=== PATIENT | female | born 1935 | race Caucasian/White ===

== ENCOUNTER 2018-09-12 12:14 | Observation (INO) | payer OTHER ==
--- OUTSIDE RECORDS SUMMARY | 2018-09-12 12:18 | XMS REPORT | Clinical Summary ---
:1935 Author Organization [facility] Address [address] [place] [address] Care Team Providers Name Role Phone Rosaura Mcneill Primary Care Provider Allergies Active Allergy Reactions Severity Noted Date Comments Irbesartan 05/31/2018 Doxazosin 05/31/2018 Meperidine 05/31/2018 Hydrocodone-Acetaminophen 05/31/2018 Cephalexin 05/31/2018 Levofloxacin 05/31/2018 Oxycodone 05/31/2018 Diazepam 05/31/2018 Lisinopril 05/31/2018 Medications Medication Sig Dispensed Refills Start Date End Date Status FLUoxetine (PROzac) Take 20 mg by 0 Active 20 MG capsule mouth daily. aspirin (ECOTRIN) Take 81 mg by 0 Active 81 MG enteric mouth daily. coated tablet atenolol (TENORMIN) Take 50 mg by 0 Active 50 MG tablet mouth daily. metFORMIN Take 1,000 mg by 0 Active (GLUCOPHAGE) 1,000 mouth 2 (two) mg tablet times a day with meals. ezetimibe (ZETIA) Take 10 mg by 0 Active 10 mg tablet mouth daily. chlorthalidone Take 25 mg by 0 08/27/2013 Active (HYGROTEN) 25 MG mouth daily. tablet spironolactone Take 50 mg by 0 Active (ALDACTONE) 50 MG mouth daily. tablet vit C/vit Take 1 tablet by 0 Active E/lutein/min/omega- mouth daily. 3 (OCUVITE ORAL) simvastatin (ZOCOR) Take 20 mg by 0 Active 20 MG tablet mouth nightly. donepezil (ARICEPT) Take 5 mg by 0 Active 5 MG tablet mouth nightly. liraglutide Inject 1.8 mg 0 Active (VICTOZA 2-IRVIN) 0.6 under the skin mg/0.1 mL (18 mg/3 daily with mL) pen injector breakfast. aspirin-acetaminoph Take 1 tablet by 0 Active en-caffeine mouth every 6 (EXCEDRIN MIGRAINE) (six) hours as 250-250-65 mg per needed for tablet headaches. pramipexole Take 0.25 mg by 0 Active (MIRAPEX) 0.5 MG mouth 2 (two) tablet times a day. apixaban (ELIQUIS) Take 2.5 mg by 0 Active 2.5 mg tablet mouth 2 (two) times a day. multivitamin-minera Take 1 tablet by 0 Active ls-lutein mouth daily. (MULTIVITAMIN 50 PLUS) tablet mirabegron Take 50 mg by 0 Active (MYRBETRIQ) 50 mg mouth daily. tablet extended release 24 hr fluticasone 2 sprays by Each 0 Active (FLONASE) 50 Nare route mcg/actuation nasal daily. spray omeprazole Take 40 mg by 0 Active (PriLOSEC) 40 MG mouth daily. capsule methocarbamol Take 500 mg by 0 Active (ROBAXIN) 500 MG mouth as needed tablet for muscle spasms. cholecalciferol, Take 2,000 Units 0 Active vitamin D3, by mouth daily. (VITAMIN D3) 2,000 unit capsule capsule Lactobacillus Take 2 tablets 0 Active acidophilus by mouth daily. (PROBIOTIC ORAL) azelastine 1 spray into 0 Active (ASTELIN) 137 mcg each nostril 2 (0.1 %) nasal spray (two) times a day. Use in each nostril as directed magnesium oxide Take 400 mg by 0 Active (MAG-OX) 400 mg mouth daily. (241.3 mg magnesium) tablet HYDROcodone-acetami Take 1 tablet by 0 Active nophen (NORCO) mouth every 6 10-325 mg per (six) hours as tablet needed for moderate pain. acetaminophen/diphe Take 1 tablet by 0 Active nhydramine (TYLENOL mouth daily as PM EXTRA STRENGTH needed. ORAL) busPIRone (BUSPAR) Take 5 mg by 0 07/16/2018 Active 5 MG tablet mouth 2 (two) times a day. melatonin 5 mg Take 5 mg by 30 tablet 3 08/08/2018 Active tablet,disintegrati mouth daily. ng levalbuterol INHALE 2 PUFFS 90 g 3 09/08/2018 Active (XOPENEX HFA) 45 BY MOUTH EVERY 4 mcg/actuation HOURS NEEDED inhaler FOR WHEEZING fluticasone-vilante Inhale 1 0 Discontinued rol (BREO ELLIPTA) inhalations once 9 100-25 mcg/dose daily. blister with device powder for inhalation levalbuterol Inhale 2 puffs 0 Discontinued (XOPENEX HFA) 45 every 4 (four) 9 mcg/actuation hours as needed inhaler for wheezing. methocarbamol Take 2 capsules 0 Discontinued (ROBAXIN ORAL) by mouth as 9 needed. pregabalin (LYRICA) Take 100 mg by 0 Discontinued 100 MG capsule mouth 2 (two) 9 times a day. zolpidem (AMBIEN) Take 10 mg by 0 Discontinued 10 mg tablet mouth nightly as 9 needed for sleep. spironolactone Take 25 mg by 0 01/04/2014 Discontinued (ALDACTONE) 25 MG mouth. 2 TABLETS 9 tablet IN THE MORNING an 1 TABLET IN THE AFTERNOON beclomethasone Inhale 2 puffs 2 0 Discontinued (QVAR) 40 (two) times a 9 mcg/actuation day. inhaler rivaroxaban Take 20 mg by 0 Discontinued (XARELTO) 20 mg mouth. 9 tablet melatonin 5 mg Take 5 mg by 30 tablet 3 08/08/2018 Discontinued tablet,disintegrati mouth daily. 9 ng levalbuterol Inhale 2 puffs 15 g 3 09/08/2018 Discontinued (XOPENEX HFA) 45 every 4 (four) 9 mcg/actuation hours as needed inhaler for wheezing. Active Problems Problem Noted Date Severe persistent asthma without complication 08/08/2018 Gastroesophageal reflux disease 08/08/2018 Allergic rhinitis 08/08/2018 TARI (obstructive sleep apnea) 06/07/2018 Behaviorally induced insufficient sleep syndrome 06/07/2018 Encounters Date Type Specialty Care Team Description 09/08/2018 Refill Pulmonology Chika Gunn MD 09/08/2018 Refill Pulmonology Machelle Valdivia MA 08/08/2018 Clinical Support Pulmonology Chika Gunn, TARI (obstructive sleep apnea); Behaviorally induced insufficient sleep syndrome; Sally Bell Gastroesophageal reflux disease, esophagitis presence not specified; Allergic rhinitis, unspecified seasonality, unspecified trigger; Severe persistent asthma without complication 08/08/2018 Office Visit Pulmonology Chika Gunn, TARI (obstructive sleep apnea) (Primary Dx); Behaviorally induced insufficient sleep syndrome; Severe persistent asthma without complication; Gastroesophageal reflux disease, esophagitis presence not specified; Allergic rhinitis, unspecified seasonality, unspecified trigger 07/04/2018 Orders Only Pulmonology Chika Gunn, TARI (obstructive sleep MD apnea) (Primary Dx) 07/04/2018 Orders Only Pulmonology Machelle Valdivia MA TARI (obstructive sleep apnea); Behaviorally induced insufficient sleep syndrome 06/09/2018 Telephone Pulmonology Machelle Valdivia MA 06/07/2018 Office Visit Pulmonology Chika Gunn, TARI (obstructive sleep apnea) (Primary Dx); Behaviorally induced insufficient sleep syndrome; Severe persistent asthma without complication; Gastroesophageal reflux disease, esophagitis presence not specified; Allergic rhinitis, unspecified seasonality, unspecified trigger 05/31/2018 Documentation Pulmonology Machelle Valdivia MA precharting after 09/11/2017 Immunizations Name Dates Previously Given Next Due FLUZONE HIGH-DOSE PF 03/07/2018 Zoster 03/07/2018 Social History Tobacco Use Types Packs/Day Years Used Date Never Smoker Smokeless Tobacco: Never Used Alcohol Use Drinks/Week oz/Week Comments No Alcohol Habits Answer Date Recorded How often do you have a drink containing alcohol? Never 06/07/2018 How many drinks containing alcohol do you have on a typical Not asked day when you are drinking? How often do you have six or more drinks on one occasion? Not asked Sex Assigned at Date Recorded Not on file Job Start Date Occupation Industry Not on file Not on file Not on file Travel History Travel Start Travel End No recent travel history available. Last Filed Vital Signs Vital Sign Reading Time Taken Blood Pressure 114/76 08/08/2018 10:57 AM CDT Pulse 67 08/08/2018 10:57 AM CDT Temperature 36.5 C (97.7 F) 08/08/2018 10:57 AM CDT Respiratory Rate - - Oxygen Saturation 95% 08/08/2018 10:57 AM CDT Inhaled Oxygen Concentration - - Weight 108 kg (239 lb) 08/08/2018 10:57 AM CDT Height 170.8 cm (5' 7.25") 08/08/2018 10:57 AM CDT Body Mass Index 37.15 08/08/2018 10:57 AM CDT Plan of Treatment Date Type Specialty Care Team Description 09/19/2018 [place] [address] [facility] [address] [place] [address] [phone] Health Maintenance Due Date Last Done Comments 65+ PNEUMOCOCCAL VACCINE (1 of 2 - PCV13) 01/12/2001 PNEUMOCOCCAL POLYSACCHARIDE VACCINE AGE 65 01/12/2001 AND OVER SHINGLES VACCINES (#2) 05/07/2018 03/07/2018 INFLUENZA VACCINE 12/22/2018 03/07/2018, 03/07/2018 Procedures Procedure Name Priority Date/Time Associated Diagnosis Comments NURSING COMMUNICATION Routine 08/08/2018 2:55 Results for this PM CDT procedure are in the results section. PULMONARY FUNCTION Routine 08/08/2018 10:17 TARI (obstructive Results for this TEST AM CDT sleep apnea) procedure are in Behaviorally induced the results insufficient sleep section. syndrome Gastroesophageal reflux disease, esophagitis presence not specified Allergic rhinitis, unspecified seasonality, unspecified trigger Severe persistent asthma without complication HOME SLEEP TESTING Routine 07/04/2018 9:35 TARI (obstructive Results for this AM HEEL PACKER sleep apnea) procedure are in Behaviorally induced the results insufficient sleep section. syndrome after 09/11/2017 Results Nursing communication (08/08/2018 2:55 PM CDT) Narrative Performed At None availabe patient was set up on 07/20/2018. Pulmonary function tests, complete (08/08/2018 10:17 AM CDT) R0.5IN Pre 4.52 3.06 - 3.06 cmH2O*s/L [facility] FRCpl Pre 2.92 2.09 - 3.73 L [facility] RV Pre 2.72 1.83 - 2.98 L [facility] TLC Pre 4.73 4.50 - 6.47 L [facility] RV % TLC Pre 57.58 37.25 - 56.43 % [facility] VC Pre 2.01 2.17 - 3.69 L [facility] ERV Pre 0.19 0.50 - 0.50 L [facility] IC Pre 1.81 2.21 - 2.21 L [facility] sR0.5IN Pre 13.65 cmH2O*s [facility] Raw Pre 11.24 3.06 - 3.06 cmH2O*s/L [facility] sGaw Predicted 0.03 0.10 - 0.10 1/(cmH2O*s) [facility] FEV1 Pre 1.60 1.54 - 2.83 L [facility] FEV1/FVC % Pre 76.59 63.59 - 83.18 % [facility] MVV Pre 49.66 71.30 - 96.46 L/min [facility] FVC Pre 2.09 2.17 - 3.69 L [facility] PEF Pre 4.50 3.22 - 7.00 L/s [facility] FEF 25-75% Pre 1.37 0.13 - 2.86 L/s [facility] DLCO Pre 17.23 9.36 - 24.05 ml/(min*mmHg) [facility] DL/VA Pre 4.11 2.40 - 5.15 ml/(min*mmHg*L) [facility] VA SB Pre 4.19 5.33 - 5.33 L [facility] FEV1 Predicted 2.19 [facility] FEV1 LLN 1.54 [facility] FEV1 % Pre of Predicted 73.3 % [facility] FVC Predicted 2.93 [facility] FVC LLN 2.17 [facility] FVC % Pre of Predicted 71.4 % [facility] FEV1/FVC % Predicted 73 [facility] FEV1/FVC % LLN 64 [facility] FEV1/FVC % Pre of Predicted 104.4 % [facility] FEF 25-75% Predicted 1.50 [facility] FEF 25-75% LLN 0.13 [facility] FEF 25-75% % Pre of Predicted 91.4 % [facility] PEF Predicted 5.11 [facility] PEF LLN 3.22 [facility] PEF % Pre of Predicted 88.0 % [facility] VC Predicted 2.93 [facility] VC LLN 2.17 [facility] VC % Pre of Predicted 68.4 % [facility] ERV Predicted 0.50 [facility] ERV LLN 0.50 [facility] ERV % Pre of Predicted 38.3 % [facility] FRCpl % Predicted 2.91 [facility] FRCpl % LLN 2.09 [facility] FRCpl % Pre of Predicted 100.3 % [facility] IC Predicted 2.21 [facility] IC LLN 2.21 [facility] IC % Pre of Predicted 82.1 % [facility] RV Predicted 2.40 [facility] RV LLN 1.83 [facility] RV % Pre of Predicted 113.3 % [facility] RV % TLC Predicted 47 [facility] RV % TLC LLN 37 [facility] RV % TLC % Pre of Predicted 122.9 % [facility] TLC Predicted 5.48 [facility] TLC LLN 4.50 [facility] TLC % Pre of Predicted 86.2 % [facility] Raw Predicted 3.06 [facility] Raw LLN 3.06 [facility] Raw % Pre of Predicted 367.3 % [facility] R0.5IN Predicted 3.06 [facility] R0.5IN LLN 3.06 [facility] R0.5IN % Pre of Predicted 147.6 % [facility] sGaw Predicted 0.10 [facility] sGaw LLN 0.10 [facility] sGaw % Pre of Predicted 28.9 % [facility] DLCO Predicted 16.71 [facility] DLCO LLN 9.36 [facility] DLCO % Pre of Predicted 103.2 % [facility] DLCOc Predicted 16.71 [facility] DLCOc LLN 9.36 [facility] DL/VA Predicted 3.78 [facility] DL/VA LLN 2.40 [facility] DL/VA % Pre of Predicted 108.8 % [facility] KCOc SB Predicted 3.78 [facility] KCOc SB LLN 2.40 [facility] VA SB Predicted 5.33 [facility] VA SB LLN 5.33 [facility] VA SB % Pre of Predicted 78.6 % [facility] MIP Predicted 45.66 [facility] MIP LLN 21.36 [facility] MEP Predicted 56.02 [facility] MEP LLN 15.66 [facility] MVV Predicted 84 [facility] MVV LLN 71 [facility] MVV % Pre of Predicted 59.2 % [facility] Narrative Performed At Performing Organization Address City/State/Zipcode Phone Number [facility] [address] [place] [address] Home Sleep Testing (07/04/2018 9:35 AM HEEL P[facility]) Narrative Performed At after 09/11/2017 Insurance Payer Benefit Plan / Group Subscriber ID Type Phone Address [employer] MED[employer]ARE [employer] MED[employer]ARE PPO/PFFS/ERS [facility] xxxxxxxxx PPO Advance Directives Patient has advance care planning documents on file. For more information, please contact:Albaro Bernard[address] [place] [address]
--- OUTSIDE RECORDS SUMMARY | 2018-09-12 12:23 | XMS REPORT | Continuity of Care Document ---
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 CHEMISTRY Calcium Lvl 8.0 mg/dL 8.5 - 10.5 07/22 LOW [facility]2011 [facility] CHEMISTRY CO2 33 meq/L 24 - 32 07/22 HI [facility]2011 [facility] CHEMISTRY AGAP 13.0 meq/L 10.0 - 03 Normal [facility] 20.0 [facility] CHEMISTRY Phosphorus 3.2 mg/dL 2.5 - 4.5 07/22 Normal [facility]2011 [facility] CHEMISTRY Magnesium Lvl 2.0 mg/dL 1.8 - 2.4 07/22 Normal [facility]2011 [facility] HEMATOLOGY Eosinophils # 0.2 K/CMM 0.0 - 0.5 / Normal [facility] HEMATOLOGY Basophils # 0.0 K/CMM 0.0 - 0.2 03/ Normal [facility] HEMATOLOGY Lymphocytes # 1.9 K/CMM 1.0 - 5.5 03/ Normal [facility]2011 [facility] HEMATOLOGY Monocytes # 0.6 K/CMM 0.0 - 0.8 / Normal [address] HEMATOLOGY Eosinophils 3.2 % 0.0 - 4.0 03/ Normal [address] HEMATOLOGY Basophils 0.6 % 0.0 - 1.0 / Normal [address] HEMATOLOGY Segs-Bands # 3.9 K/CMM 1.5 - 8.1 03 Normal [facility] HEMATOLOGY Lymphocytes 28.6 % 20.0 - 03/ Normal [place] 40.0 /2011 [facility] HEMATOLOGY Monocytes 9.6 % 2.0 - 12.0 03 Normal [facility] HEMATOLOGY Segs 58.0 % 45.0 - 03/ Normal [place] 75.0 /2011 [facility] HEMATOLOGY MPV 8.3 fL 7.4 - 10.4 07/22 Normal [facility] HEMATOLOGY Platelet 237 K/CMM 133 - 450 03 Normal [facility] HEMATOLOGY Hgb 11.3 g/dL 12.0 - 03 LOW [facility] 16.0 /2011 [facility] HEMATOLOGY RBC 3.65 M/CMM 4.20 - 07/22 [facility] 5.40 /2011 [facility] HEMATOLOGY WBC 6.7 K/CMM 3.7 - 10.4 07/22 Normal [facility] HEMATOLOGY RDW 14.9 % 11.5 - 07/22 HI [facility] 14.5 /2011 [facility] HEMATOLOGY MCHC 33.9 g/dL 32.0 - 03 Normal [facility] 36.0 /2011 Medical [place] HEMATOLOGY MCH 31.0 pg 27.0 - 03 Normal [facility] 31.0 /2011 [facility] HEMATOLOGY MCV 91.3 fL 81.0 - 07/22 Normal [facility] 99.0 /2011 [facility] HEMATOLOGY Hct 33.3 % 36.0 - 07/22 LOW [facility] 48.0 Medical Center BEDSIDE Comment1 Notify 07/22 NA [facility] GLUCOSE RN/ /2011 [facility] BEDSIDE Gluc POC 139 mg/dL 65 - 110 07/22 HI 4Interpretive [facility] GLUCOSE [facility] Data: Medical TESTING Center Upper Reportable Limit: 200 mg/dL. CHEMISTRY Magnesium Lvl 1.6 mg/dL 1.8 - 2.4 LOW [facility] CHEMISTRY BUN 10 mg/dL 7 - Normal [facility] CHEMISTRY Creatinine 0.5 mg/dL 0.5 - 1.4 Normal [facility] Lvl [facility] CHEMISTRY Potassium Lvl 3.9 meq/L 3.5 - 5.1 Normal [facility] CHEMISTRY Sodium Lvl 136 meq/L 135 - 145 Normal [facility] CHEMISTRY Chloride Lvl 92 meq/L 95 - 109 LOW [facility] Center CHEMISTRY CO2 32 meq/L 24 - 32 Normal [facility] CHEMISTRY Calcium Lvl 8.3 mg/dL 8.5 - 10.5 LOW [facility] CHEMISTRY Glucose Lvl 120 mg/dL NA 6Interpretive Data: [facility] Reference Center Ranges : 0 - 7 days : 41 - 90 mg/dL7 days - 150 yrs : 70 - 99 mg/dL (fasting), based on the clinical recommendatio ns of the [place] [employer]. CHEMISTRY AGAP 15.9 meq/L 10.0 - Normal [facility] 20.0 [facility] CHEMISTRY Phosphorus 2.6 mg/dL 2.5 - 4.5 Normal [facility] HEMATOLOGY MPV 8.6 fL 7.4 - 10.4 Normal [facility] HEMATOLOGY MCV 90.9 fL 81.0 - Normal [facility] 99.0 [facility] HEMATOLOGY RDW 14.5 % 11.5 - Normal [facility] 14.5 [facility] HEMATOLOGY MCHC 34.0 g/dL 32.0 - Normal [facility] 36.0 [facility] HEMATOLOGY MCH 30.9 pg 27.0 - Normal [facility] 31.0 [facility] HEMATOLOGY RBC 3.85 M/CMM 4.20 - [facility] 5.40 [facility] HEMATOLOGY Platelet 216 K/CMM 133 - 450 Normal [facility] HEMATOLOGY WBC 7.6 K/CMM 3.7 - 10.4 Normal [facility] HEMATOLOGY Hgb 11.9 g/dL 12.0 - LOW [facility] 16.0 [facility] HEMATOLOGY Hct 35.0 % 36.0 - [facility] 48.0 [facility] HEMATOLOGY Lymphocytes # 2.3 K/CMM 1.0 - 5.5 Normal [facility] HEMATOLOGY Monocytes # 0.8 K/CMM 0.0 - 0.8 Normal [facility] HEMATOLOGY Segs-Bands # 4.3 K/CMM 1.5 - 8.1 Normal [facility] HEMATOLOGY Eosinophils # 0.2 K/CMM 0.0 - 0.5 Normal [facility] HEMATOLOGY Basophils # 0.0 K/CMM 0.0 - 0.2 Normal [facility] HEMATOLOGY Monocytes 10.6 % 2.0 - 12.0 Normal [facility] HEMATOLOGY Segs 56.1 % 45.0 - Normal [facility] 75.0 /2011 [facility] HEMATOLOGY Lymphocytes 30.2 % 20.0 - Normal [facility] 40.0 [facility] HEMATOLOGY Eosinophils 2.5 % 0.0 - 4.0 Normal [facility] HEMATOLOGY Basophils 0.6 % 0.0 - 1.0 Normal [facility] BEDSIDE Comment1 Notify 07/21 NA [facility] GLUCOSE RN/MD Medical TESTING Center CHEMISTRY Magnesium Lvl 1.5 mg/dL 1.8 - 2.4 07/21 LOW [facility] CHEMISTRY AGAP 16.2 meq/L 10.0 - 07/21 Normal [facility] 20.0 [facility] CHEMISTRY Calcium Lvl 8.5 mg/dL 8.5 - 10.5 07/21 Normal [facility]2011 [facility] CHEMISTRY Chloride Lvl 93 meq/L 95 - 109 07/21 LOW 2011 [facility] CHEMISTRY CO2 31 meq/L 24 - 32 07/21 Normal [facility]2011 [facility] CHEMISTRY BUN 14 mg/dL 7 - 22 07/21 Normal [facility] CHEMISTRY Creatinine 0.5 mg/dL 0.5 - 1.4 07/21 Normal [facility] CHEMISTRY Sodium Lvl 136 meq/L 135 - 145 07/21 Normal [facility]2011 [facility] CHEMISTRY Glucose Lvl 136 mg/dL 07/21 NA 7Interpretive Data: Medical Reference Center Ranges : 0 - 7 days : 41 - 90 mg/dL7 days - 150 yrs : 70 - 99 mg/dL (fasting), based on the clinical recommendatio ns of the [place] [employer]. CHEMISTRY Potassium Lvl 4.2 meq/L 3.5 - 5.1 07/21 Normal [facility] HEMATOLOGY Lymphocytes # 2.1 K/CMM 1.0 - 5.5 07/21 Normal [facility] HEMATOLOGY Eosinophils # 0.2 K/CMM 0.0 - 0.5 07/21 Normal [facility] HEMATOLOGY Basophils # 0.1 K/CMM 0.0 - 0.2 07/21 Normal [facility] HEMATOLOGY Segs-Bands # 4.7 K/CMM 1.5 - 8.1 07/21 Normal [facility] HEMATOLOGY Monocytes # 0.6 K/CMM 0.0 - 0.8 07/21 Normal [facility] HEMATOLOGY Lymphocytes 27.4 % 20.0 - 07/21 Normal [place] 40.0 /2011 [facility] HEMATOLOGY Segs 61.7 % 45.0 - 07/21 Normal [facility] 75.0 [facility] HEMATOLOGY Eosinophils 2.2 % 0.0 - 4.0 07/21 Normal [facility] HEMATOLOGY Monocytes 7.8 % 2.0 - 12.0 07/21 Normal [facility] HEMATOLOGY Basophils 0.9 % 0.0 - 1.0 07/21 Normal [facility] HEMATOLOGY INR 1.04 0.85 - 07/21 Normal 9Interpretive [facility] 1.17 Data: [facility] RANGES FOR PROTIME INR: 2.0-3.0 for most medical and surgical thromboemboli c states. 2.5-3.5 for artificial heart valves and recurrent embolism.INR SHOULD BE USED ONLY FOR PATIENTS ON STABLE ANTICOAGULANT THERAPY. HEMATOLOGY PTT 28.6 s 22.9 - 07/21 Normal 12Interpretiv [facility] 35.8 /2011 e Data: [facility] Center Therapeutic Range: 57 - 92 Seconds HEMATOLOGY PT 13.6 s 12.0 - 07/21 Normal [place] 14.7 [facility] HEMATOLOGY MPV 9.3 fL 7.4 - 10.4 07/21 Normal [facility] HEMATOLOGY Platelet 196 K/CMM 133 - 450 07/21 Normal [facility] HEMATOLOGY Hgb 11.6 g/dL 12.0 - 07/21 LOW [place] 16.0 /2011 [facility] HEMATOLOGY MCV 90.6 fL 81.0 - 07/21 Normal [facility] 99.0 /2011 [facility] HEMATOLOGY Hct 34.4 % 36.0 - 07/21 LOW [facility] [place] 48.0 /2011 Medical Center HEMATOLOGY WBC 7.6 K/CMM 3.7 - 10.4 07/21 Normal [facility] Center HEMATOLOGY RBC 3.80 M/CMM 4. - 07/21 [facility] 5.40 [facility] [place] HEMATOLOGY RDW 14.7 % 11.5 - 07/21 [facility] 14.5 Medical Center HEMATOLOGY MCH 30.5 pg 27.0 - 07/21 Normal [place] 31.0 Medical Center HEMATOLOGY MCHC 33.7 g/dL 32.0 - 07/21 Normal [place] 36.0 [facility] Center CHEMISTRY Ca Norm mgdL 3.88 mg/dL 07/20 [facility] 10.10 [facility] CHEMISTRY Ca Ion mgdL 3.80 mg/dL 07/20 [facility] . [facility] CHEMISTRY Ca Ion 0.95 1. - 07/20 [facility] [place] mMol/L 1. [facility] CHEMISTRY Ca Norm 0.97 .07/20 [facility] mMol/L . [facility] CHEMISTRY Digoxin Lvl 2.0 ng/mL 0.8 - 2.0 07/20 Normal [facility] Center CHEMISTRY Phosphorus 2.6 mg/dL 2.5 - 4.5 07/20 Normal [facility] HEMATOLOGY PTT 28.9 s 22.9 - 07/20 Normal 13Interpretiv [facility] 35.8 /2011 e Data: [facility] Center Therapeutic Range: 57 - 92 Seconds HEMATOLOGY INR 1.20 0.85 - 07/20 [place] 10Interpretiv [facility] 1. e Data: [facility] RANGES FOR PROTIME INR: 2.0-3.0 for most medical and surgical thromboemboli c states. 2.5-3.5 for artificial heart valves and recurrent embolism.INR SHOULD BE USED ONLY FOR PATIENTS ON STABLE ANTICOAGULANT THERAPY. HEMATOLOGY PT 15.2 s 12.0 - 07/20 [facility] 14.7 [facility] CHEMISTRY Ca Ion mgdL 4.80 mg/dL 07/19 Normal [facility] 10.10 [facility] CHEMISTRY Ca Ion 1.20 1. - 07/19 Normal [place] mMol/L 06.22 Medical Center CHEMISTRY Ca Norm 1.26 1.16 - 07/19 Normal [facility] [place] mMol/L . [facility] CHEMISTRY Ca Norm mgdL 5.04 mg/dL 4.65 - 07/19 Normal [facility] 5. [facility] HEMATOLOGY INR 1.21 0.85 - 07/19 [place] 11Interpretiv [facility] 1.17 e Data: [facility] RANGES FOR PROTIME INR: 2.0-3.0 for most medical and surgical thromboemboli c states. 2.5-3.5 for artificial heart valves and recurrent embolism.INR SHOULD BE USED ONLY FOR PATIENTS ON STABLE ANTICOAGULANT THERAPY. HEMATOLOGY PT 15.3 s 12.0 - 07/19 [facility] [place] 14.7 [facility] HEMATOLOGY PTT 30.3 s 22.9 - 07/19 Normal 14Interpretiv [facility] 35.8 e Data: [facility] Center Therapeutic Range: 57 - 92 Seconds CHEMISTRY Ca Norm 0.94 1.16 - 07/18 LOW [facility] mMol/L . [facility] CHEMISTRY Ca Ion mgdL 3.64 mg/dL 4.65 - 07/18 LOW [facility] 5. [facility] CHEMISTRY Ca Norm mgdL 3.76 mg/dL 4.65 - 07/18 LOW [facility] 5. [facility] CHEMISTRY Ca Ion 0.91 1.16 - 07/18 LOW [facility] mMol/L . [facility] URINALYSIS UA <=1.0 0.1 - 1.0 07/18 [facility] Urobilinogen mg/dL [facility]
*NA*< Center br/>(07/18 05:32:00) <sup> </sup> URINALYSIS UA Sq Epi None Seen 07/18 NA [facility] URINALYSIS UA Spec Grav 1.020 <=1.030 07/18 Normal [facility] URINALYSIS UA Blood Negative Negative 07/18 Normal [facility] (07/18/2011 05:32:00) Center URINALYSIS UA Bili Negative Negative 07/18 NA Medical *NA* [place] (07/18/2011 05:32:00) URINALYSIS UA Turbidity Clear Clear 07/18 Normal [facility] (07/18/2011 05:32:00) Center URINALYSIS UA pH 5.0 5.0 - 8.0 07/18 Normal [facility] URINALYSIS UA Ketones 20 mg/dL Negative 07/18 ABN Medical *ABN* Center (07/18/2011 05:32:00) URINALYSIS UA Glucose Negative mg/dL Negative 07/18 NA [facility] *NA* [place] (07/18/2011 05:32:00) URINALYSIS UA Protein Negative mg/dL Negative 07/18 Normal [facility] (07/18/2011 05:32:00) Center URINALYSIS UA Leuk Est Negative Negative 07/18 Normal [facility] (07/18/2011 05:32:00) Center URINALYSIS UA WBC 5 /HPF 0 - 5 07/18 Normal [facility] URINALYSIS UA Nitrite Negative Negative 07/18 Normal [facility] (07/18/2011 05:32:00) Center URINALYSIS UA Mucus Few /LPF None Seen 07/18 [facility] *NA* [place] (07/18/2011 05:32:00) URINALYSIS UA RBC 1 /HPF 0 - 2 07/18 Normal [facility] URINALYSIS UA Color Yellow Yellow 07/18 [facility] *NA* [place] (07/18/2011 05:32:00) BACTERIAL - MRSA by PCR Negative 1 07/18 Normal 1Interpretive [facility] Data: [facility] (07/17/2011 18:00:00) INTERPRETATIO Center N: Negative..... .No MRSA DNA detected by PCR Positive..... .MRSA DNA detected by PCRASSAY LIMITATIONS:T his is a screening test for colonization by MRSA. A positive test result indicates the patient is colonized by MRSA, but does not necessarily mean that an infection is present or that treatment is necessary. Likewise, a negative test does not exclude colonization or infection. Patients should be evaluatedclin ically for symptoms and signs of infection before making therapeutic decisions. Routine decolonizatio n is discouraged and should only be considered for select patients after consultation with an infectious diseases specialist. CHEMISTRY Hgb A1C 6.7 % 07/17 NA 8Interpretive Data: HbA1C% [facility] Center eAG(mg/dL) Interpretatio n 6.0 126 Very good control 6.5 140 Very good control 7.0 154 Good Control 7.5 169 Good Control 8.0 183 Marginal Control, take action to lower 8.5 197 Marginal Control, take action to lower 9.0 212 Poor Control, take action to lower 9.5 226 Poor Control, take action to lower10.0 240 Poor Control, take action to lower CHEMISTRY TSH 2.420 0.360 - 07/17 Normal [facility] uIU/mL 3.740 [facility] CHEMISTRY ALT 29 U/L 0 - 65 07/17 Normal [facility] CHEMISTRY AST 25 U/L 0 - 37 07/17 Normal [facility]2011 [facility] CHEMISTRY Total Protein 7.2 g/dL 6.4 - 8.4 07/17 Normal [facility]2011 [facility] CHEMISTRY Bili Total 0.6 mg/dL 0.2 - 1.3 07/17 Normal [facility] CHEMISTRY Alk Phos 45 U/L 39 - 136 07/17 Normal 2011 [facility] CHEMISTRY Albumin Lvl 3.6 g/dL 3.5 - 5.0 07/17 Normal 2011 [facility] CHEMISTRY A/G Ratio 1.0 0.7 - 1.6 07/17 Normal [facility] CHEMISTRY B/C Ratio 23 6 - 25 07/17 Normal [facility] CHEMISTRY Globulin 3.6 g/dL 2.0 - 4.0 07/17 Normal [facility] CHEMISTRY Troponin-T null 0.000 - 07/17 Normal [facility] 0.100 [facility] CHEMISTRY Troponin-I 0.05 ng/mL 0.00 - 07/17 Normal [facility] 0.40 [facility] HEMATOLOGY RBC Morph Normal 07/17 Normal [facility] (07/17/2011 17:08:00) Center HEMATOLOGY Plt Morph Normal 07/17 Normal [facility] (07/17/2011 17:08:00) Center CHEMISTRY POC V Glu 127 mg/dL 65 - 110 07/17 [facility] CHEMISTRY POC V O2 Sat 71.0 % 40.0 - 07/17 [facility] 70.0 [facility] CHEMISTRY POC V BE 12 mmol/L -2-2 - 2 07/17 [facility] CHEMISTRY POC V HCO3 39 mmol/L 22 - 26 07/17 [facility] CHEMISTRY POC V PO2 36 mm[Hg] 20 - 49 07/17 Normal [facility] CHEMISTRY POC V PCO2 59 mm[Hg] 38 - 52 07/17 HI [facility] CHEMISTRY POC V pH 7.43 7.28 - 07/17 HI [facility] 7.42 [facility] CHEMISTRY POC V Temp 37.0 Bita 07/17 NA [facility] CHEMISTRY POC V Source [place] 07/17 NA [facility] CHEMISTRY POC V LA 2.0 mMol/L 0.5 - 2.2 07/17 Normal [facility] CHEMISTRY POC V Na 134 meq/L 135 - 145 07/17 LOW [facility] CHEMISTRY POC V K 3.2 meq/L 3.5 - 5.1 07/17 LOW [facility] CHEMISTRY POC V Ion Ca 1.17 1.16 - 07/17 Normal [facility] mMol/L 1.30 [facility] CHEMISTRY POC V Hct 53.0 % 36.0 - 07/17 HI [place] 48.0 [facility] Vital Signs Vital Sign Value Date Comments Source Systolic (mm Hg) 140 06/13/2015 [facility] Diastolic (mm Hg) 77 06/13/2015 [facility] Respitory Rate 18 06/13/2015 [facility] Systolic (mm Hg) 134 06/13/2015 [facility] Diastolic (mm Hg) 77 06/13/2015 [facility] Respitory Rate 17 06/13/2015 [facility] Systolic (mm Hg) 141 06/13/2015 [facility] Diastolic (mm Hg) 63 06/13/2015 [facility] Respitory Rate 16 06/13/2015 [facility] BMI Calculated 36.67 06/13/2015 [facility] Weight 115.909 06/13/2015 [facility] Height 177.8 cm 06/13/2015 [facility] Heart Rate 71 06/13/2015 [facility] Temperature Oral (F) 97.4 F 06/13/2015 [facility] Systolic (mm Hg) 118 04/10/2015 [facility] Diastolic (mm Hg) 78 04/10/2015 [facility] Respitory Rate 20 04/10/2015 [facility] Systolic (mm Hg) 120 04/10/2015 [facility] Diastolic (mm Hg) 80 04/10/2015 [facility] Respitory Rate 19 04/10/2015 [facility] Respitory Rate 18 04/10/2015 [facility] Systolic (mm Hg) 121 04/10/2015 [facility] Diastolic (mm Hg) 55 04/10/2015 [facility] BMI Calculated 37.29 04/10/2015 [facility] Weight 114.545 04/10/2015 [facility] Height 175.26 cm 04/10/2015 [facility] Temperature Oral (F) 97.6 F 04/10/2015 [facility] Height 175.26 cm 04/05/2015 [facility] BMI Calculated 37.59 04/05/2015 [facility] Weight 115.455 04/05/2015 [facility] Respitory Rate 38 07/23/2011 [facility] Respitory Rate 43 07/23/2011 [facility] Respitory Rate 21 07/23/2011 [facility] Systolic (mm Hg) 99 07/23/2011 [facility] Diastolic (mm Hg) 55 07/23/2011 [facility] Systolic (mm Hg) 120 07/23/2011 [facility] Diastolic (mm Hg) 54 07/23/2011 [facility] Diastolic (mm Hg) 61 07/23/2011 [facility] Systolic (mm Hg) 116 07/23/2011 [facility] Temperature Oral (F) 97.6 F 07/21/2011 [facility] Temperature Oral (F) 98 F 07/21/2011 [facility] Temperature Oral (F) 97.6 F 07/19/2011 [facility] Heart Rate 77 07/17/2011 [facility] Height 179.07 cm 07/17/2011 [facility] Weight 122.727 07/17/2011 [facility] Encounters Location Location Encounter Encounter Reason Attending ADM DC Status Source Details Type Number For Visit Provider Date Date [facility] Inpatient [id number] PULMONARY JEFRY 07/17 07/22 Active [facility] EMBOLISIM CRAIG-O /2011 [facility] ICD-9# [facility] 415.1 [facility] [id number] Stephen 04/10 04/11 [facility] Emergency Department /2014 [facility] OBS Day [id number] Stephen 06/13 06/14 [facility] Surgery [facility] Emergency Department /2015 [facility] Outpatient [id number] JOSEFINA 06/17 Active [facility] Outpatient [id number] JOSEFINA 07/29 Active [facility] Outpatient [id number] JOSEFINA 08/26 Active [facility] Outpatient [id number] JOSEFINA 09/30 Active [facility] Procedures Procedure Code Date Perfomer Comments Source Cataract surgery [id number] 05/24/2011 [facility] Laminectomy [id number] 05/24/2010 [facility] Lumpectomy of [id number] 07/07/2000 [facility] Hysterectomy [id number] 05/24/1975 [facility] Tonsillectomy [id number] 05/24/1958 [facility] Bladder [id number] suspension, [facility] operation<sup>1</fortune mesh placed Medical p> Center Juliocesar [id number] patient had a [facility] holes<sup>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
--- OUTSIDE RECORDS SUMMARY | 2018-09-12 12:24 | XMS REPORT ---
:1935 [facility] Address [address] [place] [address] Dr. Siddiqui [address] [place] [id number] Care Team Providers Name Role Phone Unavailable Unavailable Unavailable Problems This patient has no known problems. Allergies, Adverse Reactions, Alerts This patient has no known allergies or adverse reactions. Medications This patient has no known medications.
--- OUTSIDE RECORDS SUMMARY | 2018-09-12 12:24 | XMS REPORT | CCD ---
:1935 Author Organization [facility] Care Team Providers Name Role Phone Arnoldo Tesfaye Referring Provider Allergies, Adverse Reactions, Alerts Substance Reaction Status Avapro Active Cardura Active Catapres Active clindamycin Active Cozaar Active Demerol HCl Active hydrocodone Active Keflex Active Levaquin Canceled oxyCODONE Active tetracyclines Active Valium Active Vasotec Active Zestril Active Problem List Condition Effective Dates Status Aphasia < 03/30/2011 Resolved Diabetes mellitus Active Hypertension Active Nausea < 03/26/2011 Inactive Pain Active Pericardial window operation Active Pulmonary embolism < 03/26/2011 Inactive SDH - Subdural hematoma Active Slurred speech < 03/26/2011 Inactive SOBOE - Shortness of breath on exertion < 03/26/2011 Inactive Medications Medication Instructions Start Date End Date Status digoxin 0.5 mg, 2 mL, Route: IV, 07/19/2011 07/19/2011 Completed Drug form: INJ, ONCE, Priority: STAT, Start date: 07/19/11 10:21:00, Stop date: 07/19/11 10:21:00 NS (Bolus) IV 500 mL 500 mL, Rate: 500 ml/hr, Infuse over: 1 hr, Route: IV, Total Volume: 500, Priority: STAT, Start date: 07/19/11 10:19:00, Duration: 1 doses or times, Stop date: 07/19/11 11:18:00, Bolus Dose 07/19/20112011 Completed Bolus Dose Actos 30 mg, 1 tab, Route: PO, 07/18/2011 07/23/2011 Discontinued Drug form: TAB, Daily, Start date: 07/18/11 9:00:00, Duration: 30 day, Stop date: 08/16/11 9:00:00 Claritin 24 Hour Allergy 10 mg, 1 tab, PO, Daily, 07/23/2011 Ordered 10 mg oral tablet 30 tab, 0, 0, Substitution Allowed, TAB Claritin 24 Hour Allergy 10 mg, 1 tab, Route: PO, 07/18/2011 07/23/2011 Discontinued Drug form: TAB, Daily, Start date: 07/18/11 9:00:00, Duration: 30 day, Stop date: 08/16/11 9:00:00 Keppra 500 mg oral tablet 1,000 mg, 2 tab, Route: 07/18/2011 07/23/2011 Discontinued PO, Drug form: TAB, Q12H, Start date: 07/18/11 9:00:00, Duration: 30 day, Stop date: 08/16/11 21:00:00 docusate sodium 100 mg 100 mg, 1 cap, PO, BID, 07/23/2011 Ordered oral capsule 60 cap, 0, 0, Substitution Allowed, CAP gabapentin 300 mg oral 300 mg, 1 cap, Route: 07/18/2011 07/23/2011 Discontinued capsule PO, Drug form: CAP, TID, Start date: 07/18/11 9:00:00, Duration: 30 day, Stop date: 08/16/11 17:00:00 Prozac 20 mg, 1 cap, Route: PO, 07/18/2011 07/23/2011 Discontinued Drug form: CAP, Daily, Start date: 07/18/11 9:00:00, Duration: 30 day, Stop date: 08/16/11 9:00:00 Zetia 10 mg, 1 tab, Route: PO, 07/18/2011 07/23/2011 Discontinued Drug form: TAB, Bedtime, Start date: 07/18/11 21:00:00, Duration: 30 day, Stop date: 08/16/11 21:00:00 atenolol 25 mg oral tablet 25 mg, 1 tab, Route: PO, 07/18/2011 07/19/2011 Discontinued Drug form: TAB, Q12H, Start date: 07/18/11 9:00:00, Duration: 30 day, Stop date: 08/16/11 21:00:00 Dilaudid 0.2 mg, 0.1 mL, Route: 07/18/2011 07/18/2011 Discontinued IV, Drug form: INJ, Q2H, PRN Pain, Start date: 07/18/11 0:56:00, Duration: 30 day, Stop date: 08/17/11 0:55:00 magnesium sulfate 2 gm, 50 mL, Route: 07/22/2011 07/22/2011 Completed IVPB, Drug form: INJ, Q2H, Total dose=4 gm, Start date: 07/22/11 12:00:00, Duration: 2 doses or times, Stop date: 07/22/11 14:00:00 Cordarone 200 mg oral 200 mg, 1 tab, PO, Q12H, 07/23/2011 Ordered tablet 60 tab, 1, 1, Substitution Allowed, TAB Prozac 20 mg oral capsule 20 mg, 1 cap, PO, Daily, 07/17/2011 Ordered 60 cap, Substitution Allowed, CAP Ancef 2 gm, Route: IVP, ONCE, 07/17/2011 07/17/2011 Completed Start date: 07/17/11 13:35:00, Stop date: 07/17/11 13:35:00 potassium chloride 40 mEq, 2 tab, Route: 07/18/2011 07/18/2011 Completed PO, Drug form: ERTAB, ONCE, Priority: STAT, Start date: 07/18/11 15:13:00, Stop date: 07/18/11 15:13:00 insulin aspart 10 unit, 0.1 mL, Route: 07/17/2011 07/23/2011 Discontinued SUB-Q, Drug form: SOLN, Q4H, PRN Blood Glucose Results, Start date: 07/17/11 16:59:00, Duration: 30 day, Stop date: 08/16/11 16:58:00 insulin aspart 2 unit, 0.02 mL, Route: 07/17/2011 07/23/2011 Discontinued SUB-Q, Drug form: SOLN, Q4H, PRN Blood Glucose Results, Start date: 07/17/11 16:59:00, Duration: 30 day, Stop date: 08/16/11 16:58:00 insulin aspart 8 unit, 0.08 mL, Route: 07/17/2011 07/23/2011 Discontinued SUB-Q, Drug form: SOLN, Q4H, PRN Blood Glucose Results, Start date: 07/17/11 16:59:00, Duration: 30 day, Stop date: 08/16/11 16:58:00 insulin aspart 6 unit, 0.06 mL, Route: 07/17/2011 07/23/2011 Discontinued SUB-Q, Drug form: SOLN, Q4H, PRN Blood Glucose Results, Start date: 07/17/11 16:59:00, Duration: 30 day, Stop date: 08/16/11 16:58:00 insulin aspart 4 unit, 0.04 mL, Route: 07/17/2011 07/23/2011 Discontinued SUB-Q, Drug form: SOLN, Q4H, PRN Blood Glucose Results, Start date: 07/17/11 16:59:00, Duration: 30 day, Stop date: 08/16/11 16:58:00 phenylephrine 50 mg + 245 mL, Rate: as 07/19/2011 07/20/2011 Discontinued Sodium Chloride 0.9% IV directed, Route: IV, 245 mL Total Volume: 250, Start date: 07/19/11 14:32:00, Duration: 30 day, Stop date: 08/18/11 14:31:00 Tylenol 650 mg, 2 tab, Route: 07/19/2011 07/23/2011 Discontinued PO, Drug form: TAB, Q6H, PRN Pain, Start date: 07/19/11 11:18:00, Duration: 30 day, Stop date: 08/18/11 11:17:00 Dextrose 50% Syringe 12.5 gm, 25 mL, Route: 07/17/2011 07/23/2011 Discontinued IVP, Drug Form: INJ, PRN, PRN Blood Glucose Results, Start date: 07/17/11 16:59:00, Duration: 30 day, Stop date: 08/16/11 17:58:00 glucagon 1 mg, Route: IM, Drug 07/17/2011 07/23/2011 Discontinued form: PDR/INJ, PRN, PRN Blood Glucose Results, Start date: 07/17/11 16:59:00, Duration: 30 day, Stop date: 08/16/11 17:58:00 Dextrose 50% Syringe 25 gm, 50 mL, Route: 07/17/2011 07/23/2011 Discontinued IVP, Drug Form: INJ, PRN, PRN Blood Glucose Results, Start date: 07/17/11 16:59:00, Duration: 30 day, Stop date: 08/16/11 17:58:00 Protonix 40 mg, Route: IVP, Drug 07/18/2011 07/18/2011 Canceled form: INJ, Before Dinner, Start date: 07/18/11 16:30:00, Duration: 30 day, Stop date: 08/16/11 16:30:00 Dilaudid 2 mg, 1 tab, Route: PO, 07/18/2011 07/23/2011 Discontinued Drug form: TAB, Q4H, PRN Pain, Start date: 07/18/11 14:20:00, Duration: 30 day, Stop date: 08/17/11 14:19:00 bisacodyl 10 mg, 2 tab, Route: PO, 07/18/2011 07/20/2011 Discontinued Drug form: ECTAB, Daily, PRN Constipation, Start date: 07/18/11 14:20:00, Duration: 30 day, Stop date: 08/17/11 14:19:00 docusate sodium 100 mg 100 mg, 1 cap, Route: 07/18/2011 07/23/2011 Discontinued oral capsule PO, Drug form: CAP, BID, Start date: 07/18/11 17:00:00, Duration: 30 day, Stop date: 08/17/11 9:00:00 magnesium sulfate 2 gm, 50 mL, Route: 07/18/2011 07/18/2011 Completed IVPB, Drug form: INJ, Q2H, Start date: 07/18/11 15:00:00, Duration: 3 doses or times, Stop date: 07/18/11 19:00:00 Lovenox 40 mg, 0.4 mL, Route: 07/20/2011 07/23/2011 Discontinued SUB-Q, Drug form: INJ, Q24H, Start date: 07/20/11 14:00:00, Duration: 30 day, Stop date: 08/18/11 14:00:00 calcium chloride 2,000 mg, 20 mL, Route: 07/18/2011 07/18/2011 Completed IV, ONCE, Priority: STAT, Start date: 07/18/11 14:44:00, Stop date: 07/18/11 14:44:00 NS 0.45% IV 1,000 mL 1,000 mL, Rate: 75 07/17/2011 07/18/2011 Discontinued ml/hr, Infuse over: 13.3 hr, Route: IV, Total Volume: 1,000, Start date: 07/17/11 17:23:00, Duration: 30 day, Stop date: 08/16/11 17:22:00 magnesium sulfate 2 gm, 50 mL, Route: 07/19/2011 07/19/2011 Completed IVPB, Drug form: INJ, Q2H, Total dose=4 gm, Start date: 07/19/11 8:00:00, Duration: 2 doses or times, Stop date: 07/19/11 10:00:00 magnesium sulfate 6 gm, Route: IVPB, Drug 07/18/2011 07/18/2011 Discontinued form: INJ, ONCE, Total dose=6 gm, Priority: STAT, Start date: 07/18/11 14:44:00, Stop date: 07/18/11 14:44:00 AMIODarone 400 mg, 2 tab, Route: 07/20/2011 07/22/2011 Discontinued PO, Drug form: TAB, Q12H, Start date: 07/20/11 21:00:00, Duration: 30 day, Stop date: 08/19/11 9:00:00 Protonix 40 mg, 1 tab, Route: PO, 07/18/2011 07/23/2011 Discontinued Drug form: ECTAB, Before Dinner, Start date: 07/18/11 16:30:00, Duration: 30 day, Stop date: 08/16/11 16:30:00 phenylephrine 50 mg + 245 mL, Rate: To keep 07/19/2011 07/19/2011 Discontinued Sodium Chloride 0.9% IV SBP >=100, Route: IV, 245 mL Total Volume: 250, Start date: 07/19/11 17:00:00, Duration: 30 day, Stop date: 08/18/11 16:59:00 atenolol 25 mg oral tablet 25 mg, 1 tab, Route: PO, 07/20/2011 07/23/2011 Discontinued Drug form: TAB, Daily, Start date: 07/20/11 9:00:00, Duration: 30 day, Stop date: 08/18/11 9:00:00 Benadryl 25 mg, 1 cap, Route: PO, 07/21/2011 07/23/2011 Discontinued Drug form: CAP, QID, PRN Itching, Start date: 07/21/11 4:46:00, Duration: 30 day, Stop date: 08/20/11 4:45:00, prn for itching K-Dur 20 oral tablet, 20 mEq, 1 tab, Route: 07/18/2011 07/18/2011 Completed extended release PO, Drug form: ERTAB, ONCE, Priority: STAT, Start date: 07/18/11 15:16:00, Stop date: 07/18/11 15:16:00 calcium gluconate 3,000 mg, 30 mL, Route: IVPB, ONCE, Start date: 07/20/11 10: 57:00, Duration: 1 doses or times, Stop date: 07/20/11 10:57:00, For Ionized Ca= 0.91-0.99 mMol/L or Corrected Ca=7 - 7.9mg/dL) 07/20/2011 07/20/2011 Completed For Ionized Ca=0.91-0.99 mMol/L or Corrected Ca=7 - 7.9mg/dL) magnesium sulfate 4 gm, 50 mL, Route: IVPB, Drug form: INJ, ONCE, Start date: 07/20/11 10:56:00, Duration: 1 doses or times, Stop date: 07/20/11 10:56:00, For Mg=1.5 - 1.7 mg/dL 07/20/2011 07/20/2011 Completed For Mg=1.5 - 1.7 mg/dL digoxin 0.25 mg, 1 mL, Route: 07/19/2011 07/20/2011 Completed IV, Drug form: INJ, ONCE, Start date: 07/19/11 23:00:00, Stop date: 07/19/11 23:00:00 potassium chloride 40 mEq, 2 tab, Route: PO, Drug form: ERTAB, ONCE, Start date: 07/20/11 10:56:00, Duration: 1 doses or times, Stop date: 07/20/11 10:56: 00, For K=3.5 - 3.9 mEq/L 07/20/2011 07/20/2011 Completed For K=3.5 - 3.9 mEq/L bisacodyl 10 mg, 2 tab, Route: PO, 07/21/2011 07/23/2011 Discontinued Drug form: ECTAB, Daily, Start date: 07/21/11 9:00:00, Duration: 30 day, Stop date: 08/19/11 9:00:00 bisacodyl 10 mg, 1 supp, Route: 07/20/2011 07/20/2011 Completed IN, Drug form: SUPP, ONCE, Start date: 07/20/11 12:06:00, Stop date: 07/20/11 12:06:00 Dilaudid 0.5 mg, 0.25 mL, Route: 07/18/2011 07/23/2011 Discontinued IV, Drug form: INJ, Q4H, PRN Pain, Start date: 07/18/11 4:13:00, Duration: 30 day, Stop date: 08/17/11 4:12:00 magnesium sulfate 6 gm, 50 mL, Route: IVPB, Drug form: INJ, ONCE, Start date: 07/17/11 23:45:00, Duration: 1 doses or times, Stop date: 07/17/11 23:45:00, For Mg=1.0 - 1.4 mg/dL 07/17/2011 07/18/2011 Completed For Mg=1.0 - 1.4 mg/dL Cordarone 200 mg, 1 tab, Route: 07/22/2011 07/23/2011 Discontinued PO, Drug form: TAB, Q12H, Start date: 07/22/11 21:00:00, Duration: 30 day, Stop date: 08/21/11 9:00:00 potassium phosphate 30 mmol, 10 mL, Route: IVPB, ONCE, Start date: 07/17/11 23 :45:00, Duration: 1 doses or times, Stop date: 07/17/11 23:45:00, For PO4=1.5 - 1.9 mg/dL; Administer when level=3 - 3.4 mEq/L in place of KCl 07/17/2011 Completed For PO4=1.5 - 1.9 mg/dL; Administer when level=3 - 3.4 mEq/L in place of KCl calcium gluconate 4,000 mg, 40 mL, Route: IVPB, ONCE, Start date: 07/18/11 4: 57:00, Duration: 1 doses or times, Stop date: 07/18/11 4:57:00, For Ionized Ca < 0.91 mMol/L or Corrected Ca=6 - 6.9mg/dL 07/18/2011 07/18/2011 Completed For Ionized Ca < 0.91 mMol/L or Corrected Ca=6 - 6.9mg/dL digoxin 0.25 mg, 1 mL, Route: 07/19/2011 07/19/2011 Completed IV, Drug form: INJ, ONCE, Start date: 07/19/11 17:00:00, Stop date: 07/19/11 17:00:00 ipratropium 0.02% 0.5 mg, 2.5 mL, Route: 07/21/2011 07/23/2011 Discontinued inhalation solution NEB, Drug form: SOLN, RTID, Start date: 07/21/11 20:00:00, Duration: 30 day, Stop date: 08/20/11 14:00:00 Zocor 20 mg, 1 tab, Route: PO, 07/18/2011 07/23/2011 Discontinued Drug form: TAB, Bedtime, Start date: 07/18/11 21:00:00, Duration: 30 day, Stop date: 08/16/11 21:00:00 AMIODarone 900 mg + 482 mL, Rate: as 07/19/2011 07/20/2011 Discontinued Dextrose 5% in Water IV directed, Route: IV, 482 mL Total Volume: 500, Start date: 07/19/11 14:36:00, Duration: 30 day, Stop date: 08/18/11 14:35:00 AMIODarone 150 mg + 97 mL, Rate: 600 ml/hr, 07/19/2011 07/19/2011 Completed Dextrose 5% in Water IV 97 Infuse over: 10 minutes, mL Route: IV, Total Volume: 100, Start date: 07/19/11 14:36:00, Duration: 1 doses or times, Stop date: 07/19/11 14:45:00 Vital Signs Most recent to oldest 1 2 3 [Reference Range]: Height 179.07 cm (07/17/2011 09:27:00) Current Weight 118.409 kg 144.000 kg 96.818 kg (07/22/2011 06:23:00) (07/20/2011 10:18:00) (07/19/2011 10:45:00) Temperature Oral 97.6 DegF 98 DegF 97.6 DegF [96.4-99.1 DegF] (07/21/2011 00:00:00) (07/20/2011 20:00:00) (07/19/2011 12: 00:00) Systolic Blood Pressure 99 mmHg 120 mmHg 116 mmHg [90-140 mmHg] (07/23/2011 11:00:00) (07/23/2011 09:00:00) (07/23/2011 08:00: 00) Diastolic Blood Pressure 55 mmHg 54 mmHg 61 mmHg [60-90 mmHg] *LOW* *LOW* (07/23/2011 08:00:00) (07/23/2011 11:00:00) (07/23/2011 09:00:00) Respiratory Rate [14-20 38 BRMIN 43 BRMIN 21 BRMIN BRMIN] *HI* *HI* *HI* (07/23/2011 13:00:00) (07/23/2011 12:30:00) (07/23/2011 12:00:00) Peripheral Pulse Rate 77 bpm [60-100 bpm] (07/17/2011 09:50:00) Weight 122.727 kg (07/17/2011 09:27:00) Results BACTERIAL - SEROLOGY Most recent to [Reference Range]: 1 2 3 MRSA by PCR Negative 1 (07/17/2011 18:00:00) 1Interpretive Data: INTERPRETATION: Negative......No MRSA DNA detected by PCR Positive......MRSA DNA detected by PCRASSAY LIMITATIONS:This is a screening test for colonization by MRSA. A positivetest result indicates the patient is colonized by MRSA, but does not necessarily mean that an infection is present or that treatment is necessary. Likewise, a negative test does not exclude colonization or infection. Patients should be evaluatedclinically for symptoms and signs of infection before making therapeutic decisions. Routine decolonization is discouraged and should only be considered forselect patients after consultation with an infectious diseases specialist.BEDSIDE GLUCOSE TESTING Most recent to 1 2 3 [Reference Range]: Gluc POC Lifscn [65-110 125 mg/dL 2 132 mg/dL 3 139 mg/dL 4 mg/dL] *HI* *HI* *HI* (07/23/2011 11:38:00) (07/23/2011 04:49:00) (07/22/2011 20:16:00) Comment1 Notify RN/MD Notify RN/MD Notify RN/MD *NA* *NA* *NA* (07/23/2011 04:49:00) (07/22/2011 20:16:00) (07/21/2011 17:30:00) 2Interpretive Data: Upper Reportable Limit: 200 mg/dL.3Interpretive Data: Upper Reportable Limit: 200 mg/dL.4Interpretive Data: Upper Reportable Limit: 200 mg/dL.URINALYSIS Most recent to oldest [Reference Range]: 1 2 3 UA Turbidity [Clear] Clear (07/18/2011 05:32:00) UA Color [Yellow] Yellow *NA* (07/18/2011 05:32:00) UA pH [5.0-8.0] 5.0 (07/18/2011 05:32:00) UA Spec Grav [<=1.030] 1.020 (07/18/2011 05:32:00) UA Glucose [Negative mg/dL] Negative mg/dL *NA* (07/18/2011 05:32:00) UA Blood [Negative] Negative (07/18/2011 05:32:00) UA Ketones [Negative mg/dL] 20 mg/dL *ABN* (07/18/2011 05:32:00) UA Protein [Negative mg/dL] Negative mg/dL (07/18/2011 05:32:00) UA Urobilinogen [0.1-1.0 mg/dL] <=1.0 mg/dL *NA* (07/18/2011 05:32:00) UA Bili [Negative] Negative *NA* (07/18/2011 05:32:00) UA Leuk Est [Negative] Negative (07/18/2011 05:32:00) UA Nitrite [Negative] Negative (07/18/2011 05:32:00) UA WBC [0-5 /HPF] 5 /HPF (07/18/2011 05:32:00) UA RBC [0-2 /HPF] 1 /HPF (07/18/2011 05:32:00) UA Sq Epi None Seen *NA* (07/18/2011 05:32:00) UA Mucus [None Seen /LPF] Few /LPF *NA* (07/18/2011 05:32:00) CHEMISTRY Most recent to oldest 1 2 3 [Reference Range]: Sodium Lvl [135-145 mEq/L] 140 mEq/L 136 mEq/L 136 mEq/L (07/23/2011 03:21:00) (07/22/2011 02:57:00) (07/21/2011 05:07:00) Potassium Lvl [3.5-5.1 4.0 mEq/L 3.9 mEq/L 4.2 mEq/L mEq/L] (07/23/2011 03:21:00) (07/22/2011 02:57:00) (07/21/2011 05:07:00) Chloride Lvl [95-109 mEq/L] 98 mEq/L 92 mEq/L 93 mEq/L (07/23/2011 03:21:00) *LOW* *LOW* (07/22/2011 02:57:00) (07/21/2011 05:07:00) CO2 [24-32 mEq/L] 33 mEq/L 32 mEq/L 31 mEq/L *HI* (07/22/2011 02:57:00) (07/21/2011 05:07:00) (07/23/2011 03:21:00) AGAP [10.0-20.0 mEq/L] 13.0 mEq/L 15.9 mEq/L 16.2 mEq/L (07/23/2011 03:21:00) (07/22/2011 02:57:00) (07/21/2011 05:07:00) Creatinine Lvl [0.5-1.4 0.7 mg/dL 0.5 mg/dL 0.5 mg/dL mg/dL] (07/23/2011 03:21:00) (07/22/2011 02:57:00) (07/21/2011 05:07:00) BUN [7-22 mg/dL] 8 mg/dL 10 mg/dL 14 mg/dL (07/23/2011 03:21:00) (07/22/2011 02:57:00) (07/21/2011 05:07:00) B/C Ratio [6-25] 23 (07/17/2011 17:08:00) Glucose Lvl 123 mg/dL 5 120 mg/dL 6 136 mg/dL 7 *NA* *NA* *NA* (07/23/2011 03:21:00) (07/22/2011 02:57:00) (07/21/2011 05:07:00) Total Protein [6.4-8.4 7.2 g/dL g/dL] (07/17/2011 17:08:00) Albumin Lvl [3.5-5.0 g/dL] 3.6 g/dL (07/17/2011 17:08:00) Globulin [2.0-4.0 g/dL] 3.6 g/dL (07/17/2011 17:08:00) A/G Ratio [0.7-1.6] 1.0 (07/17/2011 17:08:00) Calcium Lvl [8.5-10.5 8.0 mg/dL 8.3 mg/dL 8.5 mg/dL mg/dL] *LOW* *LOW* (07/21/2011 05:07:00) (07/23/2011 03:21:00) (07/22/2011 02:57:00) Phosphorus [2.5-4.5 mg/dL] 3.2 mg/dL 2.6 mg/dL 2.6 mg/dL (07/23/2011 03:21:00) (07/22/2011 02:57:00) (07/20/2011 02:23:00) Magnesium Lvl [1.8-2.4 2.0 mg/dL 1.6 mg/dL 1.5 mg/dL mg/dL] (07/23/2011 03:21:00) *LOW* *LOW* (07/22/2011 02:57:00) (07/21/2011 15:00:00) ALT [0-65 U/L] 29 U/L (07/17/2011 17:08:00) AST [0-37 U/L] 25 U/L (07/17/2011 17:08:00) Alk Phos [39-136 U/L] 45 U/L (07/17/2011 17:08:00) Bili Total [0.2-1.3 mg/dL] 0.6 mg/dL (07/17/2011 17:08:00) Troponin-T [0.000-0.100 <0.010 ng/mL ng/mL] (07/17/2011 17:08:00) Troponin-I [0.00-0.40 0.05 ng/mL ng/mL] (07/17/2011 17:08:00) Hgb A1C 6.7 % 8 *NA* (07/17/2011 17:08:00) TSH [0.360-3.740 uIU/mL] 2.420 uIU/mL (07/17/2011 17:08:00) Ca Ion mgdL [4.65-5.20 3.80 mg/dL 4.80 mg/dL 3.64 mg/dL mg/dL] *LOW* (07/19/2011 02:14:00) *LOW* (07/20/2011 02:23:00) (07/18/2011 13:22:00) Ca Ion [1.16-1.30 mMol/L] 0.95 mMol/L 1.20 mMol/L 0.91 mMol/L *LOW* (07/19/2011 02:14:00) *LOW* (07/20/2011 02:23:00) (07/18/2011 13:22:00) Ca Norm [1.16-1.30 mMol/L] 0.97 mMol/L 1.26 mMol/L 0.94 mMol/L *LOW* (07/19/2011 02:14:00) *LOW* (07/20/2011 02:23:00) (07/18/2011 13:22:00) Ca Norm mgdL [4.65-5.20 3.88 mg/dL 5.04 mg/dL 3.76 mg/dL mg/dL] *LOW* (07/19/2011 02:14:00) *LOW* (07/20/2011 02:23:00) (07/18/2011 13:22:00) Digoxin Lvl [0.8-2.0 ng/mL] 2.0 ng/mL (07/20/2011 02:23:00) POC V Source [place] *NA* (07/17/2011 10:01:00) POC V Temp 37.0 DegC *NA* (07/17/2011 10:01:00) POC V pH [7.28-7.42] 7.43 *HI* (07/17/2011 10:01:00) POC V PCO2 [38-52 mmHg] 59 mmHg *HI* (07/17/2011 10:01:00) POC V PO2 [20-49 mmHg] 36 mmHg (07/17/2011 10:01:00) POC V HCO3 [22-26 mmol/L] 39 mmol/L *HI* (07/17/2011 10:01:00) POC V BE [-2-2 mmol/L] 12 mmol/L *HI* (07/17/2011 10:01:00) POC V O2 Sat [40.0-70.0 %] 71.0 % *HI* (07/17/2011 10:01:00) POC V Glu [65-110 mg/dL] 127 mg/dL *HI* (07/17/2011 10:01:00) POC V Hct [36.0-48.0 %] 53.0 % *HI* (07/17/2011 10:01:00) POC V Ion Ca [1.16-1.30 1.17 mMol/L mMol/L] (07/17/2011 10:01:00) POC V K [3.5-5.1 mEq/L] 3.2 mEq/L *LOW* (07/17/2011 10:01:00) POC V LA [0.5-2.2 mMol/L] 2.0 mMol/L (07/17/2011 10:01:00) POC V Na [135-145 mEq/L] 134 mEq/L *LOW* (07/17/2011 10:01:00) 5Interpretive Data: Reference Ranges : 0 - 7 days : 41 - 90 mg/dL7 days - 150 yrs : 70 - 99 mg/dL (fasting), based on the clinical recommendations of the [employer].6Interpretive Data: Reference Ranges : 0 - 7 days : 41 - 90 mg/dL7 days - 150 yrs : 70 - 99 mg/dL (fasting), based on the clinical recommendations of the [employer].7Interpretive Data : Reference Ranges : 0 - 7 days : 41 - 90 mg/dL7 days - 150 yrs : 70 - 99 mg/dL (fasting), based on the clinical recommendations of the [place] [employer].8Interpretive Data: HbA1C% eAG(mg/dL) Interpretation 6.0 126Very good control 6.5 140 Very good control 7.0 154 Good Control 7.5 169 Good Control 8.0 183 Marginal Control, take action to lower 8.5 197 Marginal Control, take action to lower 9.0 212 Poor Control, take action to lower 9.5 226 Poor Control, takeaction to lower10.0 240 Poor Control, take action to lowerHEMATOLOGY Most recent to oldest 1 2 3 [Reference Range]: WBC [3.7-10.4 K/CMM] 6.7 K/CMM 7.6 K/CMM 7.6 K/CMM (07/23/2011 03:21:00) (07/22/2011 02:57:00) (07/21/2011 05:07:00) RBC [4.20-5.40 M/CMM] 3.65 M/CMM 3.85 M/CMM 3.80 M/CMM *LOW* *LOW* *LOW* (07/23/2011 03:21:00) (07/22/2011 02:57:00) (07/21/2011 05:07:00) Hgb [12.0-16.0 g/dL] 11.3 g/dL 11.9 g/dL 11.6 g/dL *LOW* *LOW* *LOW* (07/23/2011 03:21:00) (07/22/2011 02:57:00) (07/21/2011 05:07:00) Hct [36.0-48.0 %] 33.3 % 35.0 % 34.4 % *LOW* *LOW* *LOW* (07/23/2011 03:21:00) (07/22/2011 02:57:00) (07/21/2011 05:07:00) MCV [81.0-99.0 fL] 91.3 fL 90.9 fL 90.6 fL (07/23/2011 03:21:00) (07/22/2011 02:57:00) (07/21/2011 05:07:00) MCH [27.0-31.0 pg] 31.0 pg 30.9 pg 30.5 pg (07/23/2011 03:21:00) (07/22/2011 02:57:00) (07/21/2011 05:07:00) MCHC [32.0-36.0 g/dL] 33.9 g/dL 34.0 g/dL 33.7 g/dL (07/23/2011 03:21:00) (07/22/2011 02:57:00) (07/21/2011 05:07:00) RDW [11.5-14.5 %] 14.9 % 14.5 % 14.7 % *HI* (07/22/2011 02:57:00) *HI* (07/23/2011 03:21:00) (07/21/2011 05:07:00) Platelet [133-450 K/CMM] 237 K/CMM 216 K/CMM 196 K/CMM (07/23/2011 03:21:00) (07/22/2011 02:57:00) (07/21/2011 05:07:00) MPV [7.4-10.4 fL] 8.3 fL 8.6 fL 9.3 fL (07/23/2011 03:21:00) (07/22/2011 02:57:00) (07/21/2011 05:07:00) Segs [45.0-75.0 %] 58.0 % 56.1 % 61.7 % (07/23/2011 03:21:00) (07/22/2011 02:57:00) (07/21/2011 05:07:00) Lymphocytes [20.0-40.0 %] 28.6 % 30.2 % 27.4 % (07/23/2011 03:21:00) (07/22/2011 02:57:00) (07/21/2011 05:07:00) Monocytes [2.0-12.0 %] 9.6 % 10.6 % 7.8 % (07/23/2011 03:21:00) (07/22/2011 02:57:00) (07/21/2011 05:07:00) Eosinophils [0.0-4.0 %] 3.2 % 2.5 % 2.2 % (07/23/2011 03:21:00) (07/22/2011 02:57:00) (07/21/2011 05:07:00) Basophils [0.0-1.0 %] 0.6 % 0.6 % 0.9 % (07/23/2011 03:21:00) (07/22/2011 02:57:00) (07/21/2011 05:07:00) Segs-Bands # [1.5-8.1 3.9 K/CMM 4.3 K/CMM 4.7 K/CMM K/CMM] (07/23/2011 03:21:00) (07/22/2011 02:57:00) (07/21/2011 05:07:00) Lymphocytes # [1.0-5.5 1.9 K/CMM 2.3 K/CMM 2.1 K/CMM K/CMM] (07/23/2011 03:21:00) (07/22/2011 02:57:00) (07/21/2011 05:07:00) Monocytes # [0.0-0.8 0.6 K/CMM 0.8 K/CMM 0.6 K/CMM K/CMM] (07/23/2011 03:21:00) (07/22/2011 02:57:00) (07/21/2011 05:07:00) Eosinophils # [0.0-0.5 0.2 K/CMM 0.2 K/CMM 0.2 K/CMM K/CMM] (07/23/2011 03:21:00) (07/22/2011 02:57:00) (07/21/2011 05:07:00) Basophils # [0.0-0.2 0.0 K/CMM 0.0 K/CMM 0.1 K/CMM K/CMM] (07/23/2011 03:21:00) (07/22/2011 02:57:00) (07/21/2011 05:07:00) RBC Morph Normal (07/17/2011 17:08:00) Plt Morph Normal (07/17/2011 17:08:00) PT [12.0-14.7 seconds] 13.6 seconds 15.2 seconds 15.3 seconds (07/21/2011 05:07:00) *HI* *HI* (07/20/2011 02:23:00) (07/19/2011 02:14:00) INR [0.85-1.17] 1.04 9 1.20 10 1.21 11 (07/21/2011 05:07:00) *HI* *HI* (07/20/2011 02:23:00) (07/19/2011 02:14:00) PTT [22.9-35.8 seconds] 28.6 seconds 12 28.9 seconds 13 30.3 seconds 14 (07/21/2011 05:07:00) (07/20/2011 02:23:00) (07/19/2011 02:14:00) 9Interpretive Data: RECOMMENDED RANGES FOR PROTIME INR: 2.0-3.0 for most medical and surgical thromboembolic states. 2.5-3.5 for artificial heart valves and recurrent embolism.INR SHOULD BE USED ONLY FOR PATIENTS ON STABLE ANTICOAGULANT THERAPY.10Interpretive Data: RECOMMENDED RANGES FOR PROTIME INR: 2.0-3.0 for most medical and surgical thromboembolic states. 2.5-3.5 for artificial heart valves and recurrent embolism.INR SHOULD BE USED ONLY FOR PATIENTS ON STABLE ANTICOAGULANT THERAPY.11Interpretive Data: RECOMMENDED RANGES FOR PROTIME INR: 2.0-3.0 for most medical and surgical thromboembolic states. 2.5-3.5 for artificial heart valves and recurrent embolism.INR SHOULD BE USED ONLY FOR PATIENTS ON STABLE ANTICOAGULANT THERAPY.12Interpretive Data: Heparin Therapeutic Range: 57 - 92 [id number] Data: Heparin Therapeutic Range: 57 - 92 [id number] Data: Heparin Therapeutic Range: 57 - 92 Seconds
--- NOTE | 2018-09-12 13:18 | RAD REPORT ---
EXAM DESCRIPTION: RAD - Chest Single View - 09/12/2018 12:50 pm CLINICAL HISTORY: Cough, fever, decreased O2 saturation COMPARISON: None. TECHNIQUE: AP portable chest image was obtained 1247 hours . FINDINGS: Lungs are slightly underinflated. Interstitial pattern is prominent throughout both lung f ields. Baseline for the patient is unknown. Focal density is present in the medial right lung base. M ass and focal pneumonia are both possible. As a baseline study, interstitial edema and infiltrate can not be distinguished from fibrosis throughout the lung munoz. No other area of mass or possible infi ltrate. Heart and vasculature are normal. No measurable pleural effusion and no pneumothorax. No acute bony abnormality seen. Aorta is mildly tortuous but otherwise without acute finding. Aortic calcifications are present. IMPRESSION: Focal infiltrate or masslike density medial right lung base. This can be further evaluat ed with two-view chest imaging or CT chest imaging. Baseline examination with diffusely prominent interstitial markings. This could be chronic fibrotic c hange, interstitial edema, interstitial infiltrate or a combination.
[2018-09-12 13:24] LABS: Absolute Lymphocytes (CBC) 1.2 K/uL (0.7-4.9); Absolute Monocytes 0.8 K/uL (0.1-1.3); Absolute Neutrophil 6.2 K/uL (1.8-8.0); Basophils % 0.6 % (0-1.3); Eosinophils % 0.2 % (0-4.4); Hematocrit 45.8 % (36.0-45.0); Lymphocytes % 14.5 % (15.3-44.8); MPV 8.2 fL (7.6-11.3); Monocytes % 9.5 % (3.3-12.3); RBC Red Blood Cell Count 5.02 M/uL (3.86-4.86)
[2018-09-12] MEDS ORDERED: ALBUTEROL 2.5 MG/3 ML NEB SOL ONE (13:30)
[2018-09-12 13:41] LABS: Protime INR 1.19
[2018-09-12] MEDS ORDERED: PIPER/TAZO/NS 3.375gm 3.375 GM/100 ML BAG ONE (13:45)
[2018-09-12] MEDS ORDERED: AZITHROMYCIN IV 500 MG in NA CHLORIDE 0.9% 250 ML IVPB ONE (14:00)
--- NOTE | 2018-09-12 14:19 | EKG ---
Test Date: 2018-09-12 Test Time: 12:51:24 Sleeper Cutter: RASHEL MEASUREMENT RESULTS: Intervals: Rate: 98 ME: 178 QRSD: 92 QT: 362 QTc: 462 [place]: P: -1 ME: 178 QRS: -32 T: 8 INTERPRETIVE STATEMENTS: Sinus rhythm with marked sinus arrhythmia Left axis deviation Abnormal ECG Compared to ECG 11/19/2003 13:49:00 Left-axis deviation now present Electronically Signed On 09-12-18 14:18:57 CDT by Wesley Artis
[2018-09-12 14:21] LABS: Albumin 3.2 g/dL (3.4-5.0); Bilirubin Direct 0.2 mg/dL (0-0.2); Bilirubin Total 0.7 mg/dL (0.2-1.0); Magnesium 1.5 mg/dL (1.8-2.4); Potassium 3.3 mmol/L (3.5-5.1); Protein, Total 7.4 g/dL (6.4-8.2); Troponin (Emerg Dept Use Only) 0.03 ng/mL (0.0-0.045)
--- NOTE | 2018-09-12 14:54 | EDPHYS ---
Physician Documentation [facility] Name: Samanta Carrillo Age: 83 yrs Sex: Female : 1935 Arrival Date: 09/12/2018 Time: 12:16 Bed 18 Private MD: ED Physician Reed Lindo HPI: 09/12 14:35 This 83 yrs old Female presents to ER via EMS with complaints of Shortness Of wa Breath. 14:36 The patient has shortness of breath at rest, c/o SOB, cough, fever x 2 days. noted low wa sat's 87% at PMD office so sent here for further eval. states several fam members with 'cold" symptoms as well. denies CP. denies AWAN. . Onset: The symptoms/episode began/occurred 2 day(s) ago. Duration: The symptoms are continuous, and are steadily getting worse. The patient's shortness of breath is aggravated by coughing, is alleviated by nothing. Associated signs and symptoms: Pertinent positives: productive cough, fever, vomiting, Pertinent negatives: chest pain, dizziness, hemoptysis, numbness in extremities, visual changes. Severity of symptoms: At their worst the symptoms were moderate in the emergency department the symptoms are worse moderately. The patient has not experienced similar symptoms in the past. The patient has been recently seen by a physician: the patient's primary care provider, today. Historical: - Allergies: 12:28 Avapro; jl7 12:28 Cardura; jl7 12:28 Catapres; jl7 12:28 Clindamycin; jl7 12:28 Cozaar; jl7 12:28 Demerol; jl7 12:28 [place]; jl7 12:28 Keflex; jl7 12:28 Oxycodone HCl; jl7 12:28 Tetracycline; jl7 12:28 Valium; jl7 12:28 Vasotec; jl7 12:28 Zestril; jl7 - Home Meds: 12:57 Aldactone 100 mg Oral tab 1 tab once daily [Active]; Aldactone 50 mg Oral tab 1 tab aj once daily [Active]; aspirin 81 mg Oral TbEC 1 tab once daily [Active]; atenolol 50 mg Oral tab 1 tab 2 times per day [Active]; BuSpar Oral 5 mg twice a day [Active]; chlorthalidone 50 mg Oral tab once daily [Active]; Eliquis 2.5 mg oral tab 1 tab 2 times per day [Active]; Flonase 50 mcg/actuation Nasal spsn 1 spray 2 times per day [Active]; hydrocodone-acetaminophen 5-325 mg Oral tab 1 tab daily [Active]; metformin 500 mg Oral tab 1 tab 2 times per day [Active]; Mirapex 0.5 mg Oral tab twice a day [Active]; Ocuvite [id number] hy-pzck-ty-mg oral cap [Active]; Prilosec 40 mg Oral cpDR 1 cap once daily [Active]; Prozac 20 mg Oral cap 1 cap once daily [Active]; Qvar 40 mcg inhalation 2 puff twice a day [Active]; Robaxin 500 mg Oral tab daily [Active]; spironolactone 25 mg Oral tab 1 tab once daily [Active]; docusate sodium 250 mg Oral cap 1 cap once daily [Active]; Vesicare 5 mg oral tab 1 tab once daily [Active]; Victoza 2-Mauricio 0.6 mg/0.1 mL (18 mg/3 mL) subcutaneous pnij 0.2 mL once daily [Active]; Xarelto 20 mg oral tab 1 tab once daily [Active]; Zetia 10 mg Oral tab 1 tab once daily [Active]; Zocor 20 mg Oral tab 1 tab once daily [Active]; - PMHx: 12:28 Diabetes - NIDDM; Atrial Fib; Hypertension; jl7 - Immunization history:: Adult Immunizations up to date. - Social history:: Smoking status: Patient/guardian denies using tobacco. - Family history:: not pertinent. - Ebola Screening: : Patient negative for fever greater than or equal to 101.5 degrees Fahrenheit, and additional compatible Ebola Virus Disease symptoms Patient denies exposure to infectious person Patient denies travel to an Ebola-affected area in the 21 days before illness onset No symptoms or risks identified at this time. - Hospitalizations: : No recent hospitalization is reported. ROS: 14:40 Eyes: Negative for injury, pain, redness, and discharge, ENT: Negative for injury, wa pain, and discharge, Neck: Negative for injury, pain, and swelling, Cardiovascular: Negative for chest pain, palpitations, and edema, Back: Negative for injury and pain, : Negative for injury, bleeding, discharge, and swelling, MS/Extremity: Negative for injury and deformity, Skin: Negative for injury, rash, and discoloration, Neuro: Negative for headache, weakness, numbness, tingling, and seizure, Psych: Negative for depression, anxiety, suicide ideation, homicidal ideation, and hallucinations. 14:40 Constitutional: Positive for chills, fever, weakness. 14:40 Respiratory: Positive for cough, with yellow sputum, shortness of breath, at rest. 14:40 Abdomen/GI: Positive for nausea, vomiting, Negative for abdominal pain, diarrhea. 14:40 All other systems are negative. Exam: 14:41 Head/Face: Normocephalic, atraumatic. Eyes: Pupils equal round and reactive to light, wa extra-ocular motions intact. Lids and lashes normal. Conjunctiva and sclera are non-icteric and not injected. Cornea within normal limits. Periorbital areas with no swelling, redness, or edema. ENT: Nares patent. No nasal discharge, no septal abnormalities noted. Tympanic membranes are normal and external auditory canals are clear. Oropharynx with no redness, swelling, or masses, exudates, or evidence of obstruction, uvula midline. Mucous membranes moist. Neck: Trachea midline, no thyromegaly or masses palpated, and no cervical lymphadenopathy. Supple, full range of motion without nuchal rigidity, or vertebral point tenderness. No Meningismus. Chest/axilla: Normal chest wall appearance and motion. Nontender with no deformity. No lesions are appreciated. Cardiovascular: Regular rate and rhythm with a normal S1 and S2. No gallops, murmurs, or rubs. Normal PMI, no JVD. No pulse deficits. Back: No spinal tenderness. No costovertebral tenderness. Full range of motion. Skin: Warm, dry with normal turgor. Normal color with no rashes, no lesions, and no evidence of cellulitis. MS/ Extremity: Pulses equal, no cyanosis. Neurovascular intact. Full, normal range of motion. Neuro: Awake and alert, GCS 15, oriented to person, place, time, and situation. Cranial nerves II-XII grossly intact. Motor strength 5/5 in all extremities. Sensory grossly intact. Cerebellar exam normal. Normal gait. Psych: Awake, alert, with orientation to person, place and time. Behavior, mood, and affect are within normal limits. 14:41 Constitutional: The patient appears in no acute distress, alert, febrile. 14:41 Respiratory: the patient does not display signs of respiratory distress, Respirations: coarse bilaterally. difficult to ascertain as breaks into cough spells with deep inspiration, Breath sounds: rhonchi, that are moderate, are located in both bases, Respiratory rate: nml 14:41 Abdomen/GI: Inspection: abdomen appears normal, Bowel sounds: normal, Palpation: abdomen is soft and non-tender, in all quadrants. Vital Signs: 12:23 BP 139 / 76; Pulse 92; Resp 20; Temp 99.1; Pulse Ox 93% on 2 lpm NC; mh5 14:49 BP 152 / 94; Pulse 96; Resp 22 S; Pulse Ox 95% on 2 lpm NC; iw 15:24 BP 138 / 82; Pulse 88; Resp 19; Pulse Ox 97% on R/A; aj MDM: 12:21 Patient medically screened. va 14:43 Differential diagnosis: Bronchitis CHF exacerbation, Myocardial Infarction pneumonia, wa pulmonary edema, reactive airway disease, Unstable Angina. Data reviewed: vital signs, nurses notes. Test interpretation: by ED physician or midlevel provider: EKG: interp by me: HR 98. LAD. non-specific diffuse ST-T changes. CXRL R LL infiltrates. 14:46 Test interpretation: by ED physician or midlevel provider: labs: flu screen negative. wa noted hyperglycemia at 178. noted hyponatremia at 130, hypochloremia at 87, hypomag at 1.5. trop and BNP nml. Response to treatment: the patient's symptoms have mildly improved after treatment. ED course: cough improved with nebs. abx given. will replace low electrolytes. see orders. 14:50 Special discussion: pt allergic to multiple abx. therefore had to cover with zosyn and wa zithromax as a combination. cultures pending. 09/12 12:32 Order name: Blood Culture Adult (2) va 09/12 12:32 Order name: BMP; Complete Time: 14:45 09/12 12:32 Order name: CBC with Diff; Complete Time: 13:55 09/12 12:32 Order name: Hepatic Function; Complete Time: 14:45 09/12 12:32 Order name: Magnesium; Complete Time: 14:45 22 12:32 Order name: NT PRO-BNP; Complete Time: 14:34 va 09/12 12:32 Order name: XRAY CXR (1 view); Complete Time: 13:23 va 09/12 12:32 Order name: PT-INR; Complete Time: 14:45 va 09/12 12:32 Order name: Troponin (emerg Dept Use Only); Complete Time: 14:45 va 09/12 12:32 Order name: Flu; Complete Time: 13:55 va 09/12 13:54 Order name: Urine Microscopic Only 09/12 12:32 Order name: EKG; Complete Time: 12:33 va 09/12 12:32 Order name: Cardiac monitoring; Complete Time: 13:28 va 09/12 12:32 Order name: EKG - Nurse/Tech; Complete Time: 13:28 va 09/12 12:32 Order name: IV Saline Lock; Complete Time: 13:28 va 09/12 12:32 Order name: Labs collected and sent; Complete Time: 13: va 09/12 12:32 Order name: O2 Per Protocol; Complete Time: 13: va 09/12 12:32 Order name: O2 Sat Monitoring; Complete Time: 13: va 09/12 13:46 Order name: Labs - recollect needed; Complete Time: 14: 09/12 13:54 Order name: Urine Dipstick-Ancillary (obtain specimen) va Administered Medications: 13:45 Drug: Albuterol 1.25 mg Route: Inhalation; 13:45 Drug: Zosyn 3.375 grams Route: IVPB; Infused Over: 60 mins; Site: left antecubital; aj 16:07 Follow up: Response: No adverse reaction; IV Status: Completed infusion; IV Intake: aj 100ml 14:24 Drug: Zithromax 500 mg Route: IVPB; Infused Over: 1 hrs; Site: left antecubital; aj 16:07 Follow up: Response: No adverse reaction; IV Status: Completed infusion; IV Intake: aj 250ml 14:48 Drug: NS 0.9% 500 ml Route: IV; Rate: bolus; Site: left antecubital; iw 16:07 Follow up: Response: No adverse reaction; IV Status: Completed infusion; IV Intake: aj 500ml 15:18 Drug: Potassium Effervescent Tablet 50 mEq Route: PO; aj 16:06 Follow up: Response: No adverse reaction aj 15:18 Drug: Zofran 4 mg Route: IVP; Site: left antecubital; aj 15:57 Follow up: Response: No adverse reaction aj 16:06 Not Given (To be administered upstairs): Magnesium Sulfate 2 grams IVPB once over 2 hrs aj Disposition: 09/12/18 14:53 Hospitalization ordered by Sunday Feng for Inpatient Admission. Preliminary diagnosis are Acute Right lower lobe pneumonia, acute dyspnea and cough, hyponatremia, hypochloremia. - Bed requested for Telemetry/MedSurg (Inpatient). - Status is Inpatient Admission. aj - Condition is Stable. - Problem is new. - Symptoms have improved. UTI on Admission? No Signatures: Dispatcher [employer] EDMS Celena Chand Amanda, RN RN aj Williams, Irene, RN RN iw Leal, Jahala, RN RN jl7 Reed Lindo MD MD wa Corrections: (The following items were deleted from the chart) 15:27 14:53 Hospitalization Ordered by Sunday Feng MD for Inpatient Admission. Preliminary bd diagnosis is Acute Right lower lobe pneumonia; acute dyspnea and cough; hyponatremia; hypochloremia. Bed requested for Telemetry/MedSurg (Inpatient). Status is Inpatient Admission. Condition is Stable. Problem is new. Symptoms have improved. UTI on Admission? No. va 16:09 15:27 09/12/2018 14:53 Hospitalization Ordered by Sunday Feng MD for Inpatient Admission. Preliminary diagnosis is Acute Right lower lobe pneumonia; acute dyspnea and cough; hyponatremia; hypochloremia. Bed requested for Telemetry/MedSurg (Inpatient). Status is Inpatient Admission. Condition is Stable. Problem is new. Symptoms have improved. UTI on Admission? No. bd
--- NOTE | 2018-09-12 14:54 | ER ---
Nurse's Notes [facility] Name: Samanta Carrillo Age: 83 yrs Sex: Female : 1935 Arrival Date: 09/12/2018 Time: 12:16 Bed 18 Private MD: Diagnosis: Acute Right lower lobe pneumonia;acute dyspnea and cough;hyponatremia;hypochloremia Presentation: 09/12 12:16 Presenting complaint: EMS states: She was at the doctor in [place], RA sat was jl7 87%, pt c/o not feeling well for the last 2 days with unproductive cough and fever. Transition of care: patient was received from another setting of care (ambulatory primary care physician practice). Onset of symptoms was September 10, 2018. Risk Assessment: Do you want to hurt yourself or someone else? Patient reports no desire to harm self or others. Initial Sepsis Screen: Does the patient meet any 2 criteria? HR > 90 bpm. No. Patient's initial sepsis screen is negative. Does the patient have a suspected source of infection? No. Patient's initial sepsis screen is negative. Care prior to arrival: Medication(s) given: Albuterol Neb x 1, Atrovent Neb x 1, IV initiated. 20 GA, in the left antecubital area. 12:16 Method Of Arrival: EMS: [facility] jl7 12:16 Acuity: FLORIN 3 jl7 Triage Assessment: 16:05 Respiratory: Onset: The symptoms/episode began/occurred. aj Historical: - Allergies: 12:28 Avapro; jl7 12:28 Cardura; jl7 12:28 Catapres; jl7 12:28 Clindamycin; jl7 12:28 Cozaar; jl7 12:28 Demerol; jl7 12:28 [place]; jl7 12:28 Keflex; jl7 12:28 Oxycodone HCl; jl7 12:28 Tetracycline; jl7 12:28 Valium; jl7 12:28 Vasotec; jl7 12:28 Zestril; jl7 - Home Meds: 12:57 Aldactone 100 mg Oral tab 1 tab once daily [Active]; Aldactone 50 mg Oral tab 1 tab aj once daily [Active]; aspirin 81 mg Oral TbEC 1 tab once daily [Active]; atenolol 50 mg Oral tab 1 tab 2 times per day [Active]; BuSpar Oral 5 mg twice a day [Active]; chlorthalidone 50 mg Oral tab once daily [Active]; Eliquis 2.5 mg oral tab 1 tab 2 times per day [Active]; Flonase 50 mcg/actuation Nasal spsn 1 spray 2 times per day [Active]; hydrocodone-acetaminophen 5-325 mg Oral tab 1 tab daily [Active]; metformin 500 mg Oral tab 1 tab 2 times per day [Active]; Mirapex 0.5 mg Oral tab twice a day [Active]; Ocuvite [id number] xd-dzsy-ma-mg oral cap [Active]; Prilosec 40 mg Oral cpDR 1 cap once daily [Active]; Prozac 20 mg Oral cap 1 cap once daily [Active]; Qvar 40 mcg inhalation 2 puff twice a day [Active]; Robaxin 500 mg Oral tab daily [Active]; spironolactone 25 mg Oral tab 1 tab once daily [Active]; docusate sodium 250 mg Oral cap 1 cap once daily [Active]; Vesicare 5 mg oral tab 1 tab once daily [Active]; Victoza 2-Mauricio 0.6 mg/0.1 mL (18 mg/3 mL) subcutaneous pnij 0.2 mL once daily [Active]; Xarelto 20 mg oral tab 1 tab once daily [Active]; Zetia 10 mg Oral tab 1 tab once daily [Active]; Zocor 20 mg Oral tab 1 tab once daily [Active]; - PMHx: 12:28 Diabetes - NIDDM; Atrial Fib; Hypertension; jl7 - Immunization history:: Adult Immunizations up to date. - Social history:: Smoking status: Patient/guardian denies using tobacco. - Family history:: not pertinent. - Ebola Screening: : Patient negative for fever greater than or equal to 101.5 degrees Fahrenheit, and additional compatible Ebola Virus Disease symptoms Patient denies exposure to infectious person Patient denies travel to an Ebola-affected area in the 21 days before illness onset No symptoms or risks identified at this time. - Hospitalizations: : No recent hospitalization is reported. Screenin:58 Abuse screen: Denies threats or abuse. Denies injuries from another. Nutritional aj screening: No deficits noted. Tuberculosis screening: No symptoms or risk factors identified. Fall Risk None identified. Assessment: 12:47 General: Appears in no apparent distress. comfortable, Behavior is calm, cooperative, aj appropriate for age. Pain: Denies pain. Neuro: Level of Consciousness is awake, alert, obeys commands, Oriented to person, place, time, situation. Cardiovascular: Rhythm is regular. Respiratory: Airway is patent Respiratory effort is even, labored, Respiratory pattern is tachypnea Breath sounds with crackles bilaterally. Derm: Skin is intact, is healthy with good turgor, Skin is pink, warm \T\ dry. normal. 14:50 Reassessment: pt assisted back to bed from wheelchair, family at bedside, Dr. Feng now iw at beside. 15:24 Reassessment: Patient appears in no apparent distress at this time. No changes from aj previously documented assessment. Patient and/or family updated on plan of care and expected duration. Pain level reassessed. Patient is alert, oriented x 3, equal unlabored respirations, skin warm/dry/pink. Patient denies pain at this time. Patient states feeling better. Patient states symptoms have improved. Vital Signs: 12:23 BP 139 / 76; Pulse 92; Resp 20; Temp 99.1; Pulse Ox 93% on 2 lpm NC; mh5 14:49 BP 152 / 94; Pulse 96; Resp 22 S; Pulse Ox 95% on 2 lpm NC; iw 15:24 BP 138 / 82; Pulse 88; Resp 19; Pulse Ox 97% on R/A; aj ED Course: 12:16 Patient arrived in ED. jl7 12:17 Estela Montano, RN is Primary Nurse. aj 12:20 Triage completed. jl7 12:21 Reed Lindo MD is Attending Physician. nm 12:25 Patient has correct armband on for positive identification. Placed in gown. Bed in low mh5 position. Call light in reach. Side rails up X2. Adult w/ patient. Warm blanket given. hall monitor on. Pulse ox on. NIBP on. 12:28 Arm band placed on right wrist. jl7 12:50 XRAY CXR (1 view) In Process Unspecified. EDMS 12:58 No provider procedures requiring assistance completed. Maintain EMS IV. Site clean \T\ aj dry. Gauge \T\ site: 20 to right AC. 13:03 EKG done, by household appliances service technician. reviewed by Reed Lindo MD. at1 13:14 Flu Sent. aj 14:51 Sunday Feng MD is Hospitalizing Provider. wa 16:04 Patient admitted, IV remains in place. intact. aj Administered Medications: 13:45 Drug: Albuterol 1.25 mg Route: Inhalation; aj 13:45 Drug: Zosyn 3.375 grams Route: IVPB; Infused Over: 60 mins; Site: left antecubital; aj 16:07 Follow up: Response: No adverse reaction; IV Status: Completed infusion; IV Intake: aj 100ml 14:24 Drug: Zithromax 500 mg Route: IVPB; Infused Over: 1 hrs; Site: left antecubital; aj 16:07 Follow up: Response: No adverse reaction; IV Status: Completed infusion; IV Intake: aj 250ml 14:48 Drug: NS 0.9% 500 ml Route: IV; Rate: bolus; Site: left antecubital; iw 16:07 Follow up: Response: No adverse reaction; IV Status: Completed infusion; IV Intake: aj 500ml 15:18 Drug: Potassium Effervescent Tablet 50 mEq Route: PO; aj 16:06 Follow up: Response: No adverse reaction aj 15:18 Drug: Zofran 4 mg Route: IVP; Site: left antecubital; aj 15:57 Follow up: Response: No adverse reaction aj 16:06 Not Given (To be administered upstairs): Magnesium Sulfate 2 grams IVPB once over 2 hrs aj Intake: 16:07 IV: 500ml; Total: 500ml. aj 16:07 IV: 250ml; Total: 750ml. aj 16:07 IV: 100ml; Total: 850ml. aj Outcome: 14:53 Decision to Hospitalize by Provider. wa 16:04 Admitted to Med/surg accompanied by tech, via stretcher, room 415, with oxygen, with aj chart, Report called to Zen Kim 16:04 Condition: stable 16:04 Instructed on the need for admit. 16:09 Patient left the ED. aj Signatures: Dispatcher [employer] EDMS Estela Montano, RN RN Chelsea Michaels RN RN iw Gonzales, Amanda, hearth feeder EKG Tat1 Machelle Will 5 Brielle Coreas RN RN jl7 Belgica, Reed, MD MD wa
[2018-09-12] MEDS ORDERED: NA CHLORIDE 0.9% 500 ML ONE (14:57)
[2018-09-12] MEDS ORDERED: POTASSIUM 25 MEQ EFFERV TAB ONE (15:19)
[2018-09-12] MEDS ORDERED: ONDANSETRON 4 MG/2 ML VIAL ONE (15:19)
[2018-09-12] MEDS ORDERED: Magnesium Sulfate 2gm IVPB 2 G/50 ML BAG IV ONE (15:19)
[2018-09-12] MEDS ORDERED: D50W 25 GM/50 ML SYRINGE IV PRN (16:39)
[2018-09-12] MEDS ORDERED: GLUCAGON 1 MG/VIAL IM PRN (16:39)
[2018-09-12] MEDS ORDERED: ONDANSETRON 4 MG/2 ML VIAL IV PRN (16:39)
[2018-09-12] MEDS: INSULIN -REGULAR HUMAN 50 UNIT/0.5 ML ML SQ SCH ×2 (16:39→21:00)
[2018-09-12] MEDS: NA CHLORIDE 0.9% 1,000 ML IV SCH (17:30)
--- NOTE | 2018-09-12 17:53 | RAD REPORT ---
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 No evidence of an acute fracture is seen. Lamar calcified density seen projecting inferior to the left femoral hea d is noted, of unclear etiology but may represent an osteochondroma.
--- NOTE | 2018-09-12 17:54 | RAD REPORT ---
EXAM DESCRIPTION: RAD - Elbow Right 2 View - 09/12/2018 5:43 pm CLINICAL HISTORY: fall, pain COMPARISON: No comparisons FINDINGS: No acute fracture or dislocation is seen.
--- NOTE | 2018-09-12 17:55 | RAD REPORT ---
EXAM DESCRIPTION: RAD - Knee Right 2 View - 09/12/2018 5:43 pm CLINICAL HISTORY: fall, pain COMPARISON: No comparisons FINDINGS: Total knee arthroplasty is noted. No acute fracture is identified. No significant joint fl uid seen.
[2018-09-12] MEDS ORDERED: FLUTICASONE 50MCG NASAL SPRAY NAS SCH (18:15)
[2018-09-12] MEDS ORDERED: SIMVASTATIN 20 MG PO SCH (21:00)
[2018-09-12] MEDS: BECLOMETHASONE DIPROPIONATE IH SCH (21:00)
[2018-09-12] MEDS: APIXABAN 2.5 MG TABLET PO SCH (22:13)
[2018-09-12] MEDS: BUSPIRONE HCL 5 MG TABLET PO SCH (22:13)
[2018-09-12] MEDS: ATORVASTATIN 10 MG TAB PO SCH (22:13)
[2018-09-12] MEDS: PRAMIPEXOLE 0.25 MG TAB PO SCH (22:14)
[2018-09-12] MEDS: SPIRONOLACTONE 25 MG TABLET PO SCH (22:16)
[2018-09-12] MEDS: MELATONIN 5 MG TABLET PO PRN (22:27)
[2018-09-13] MEDS: ACETAMINOPHEN 500 MG TAB PO PRN (03:06)
--- NOTE | 2018-09-13 04:06 | HP ---
Date of Admission: 09/12/2018 Code Status: Full code. Chief Complaint: Shortness of breath, cough, fever. History Of Present Illness: The patient is an 83-year-old female with past medical history of diabetes, hypertension, history of pulmonary embolism, chronic pain syndrome, major depressive disorder, who has been having multiple falls recently. The patient had a fall again today, has been less alert, decreased appetite, has been having some significant cough with clear sputum production. The patient does report some ill contacts specifically grandchildren. The patient did have a temperature of 101 today, was seen by her primary care physician and was instructed to go to the ER. The patient's symptoms are constant, moderate, progressively worsening. In the ER, the patient's vital signs were stable. She had to be placed on supplemental oxygen. Her workup revealed a white blood cell count of 8.3. She does not appear to be septic. The patient's chest x-ray showed right basal pneumonia. The patient was then referred for admission. The patient has multiple drug allergies. Was given azithromycin. When seen in the ER, she was awake, alert, oriented x3, in mild distress. Past Medical History: Hypertension; history of PE, on Eliquis; diabetes mellitus type 2, non-insulin requiring; breast cancer, currently in remission. Surgical History: The patient has had knee surgery and a breast cancer surgery. Social History: The patient denies any tobacco use, alcohol use, or illicit drug use. Family History: Not pertinent in this 83-year-old female. Review of Systems: An 11-point system reviewed, negative except as per HPI. Physical Examination: Vital Signs: Blood pressure 139/76, pulse 92, respirations 20, temperature 99.1 , O2 93% on 2 L. GENERAL: Awake, alert, oriented x3, in mild respiratory distress, elderly female, ill appearing, obese. HEENT: Normocephalic, atraumatic. PERRLA. EOMI. Oropharynx is clear. Poor dentition. Conjunctivae are anicteric. Neck: Supple. No JVD. Trachea midline. CV: S1, S2. Regular rate and rhythm. Peripheral pulses weak bilaterally. Respiratory: Diminished breath sounds, worse on the right. No crackles. Some dullness to percussion on the right base. Gastrointestinal: Abdomen is soft, nontender, nondistended. Positive bowel sounds. No guarding or rigidity. Extremities: No clubbing, cyanosis, or any significant edema. No calf tenderness. Neuro: Cranial nerves 2 through 12 intact grossly. No focal neurological deficits. Speech is normal. Strength is symmetric in bilateral upper and lower extremities. Skin: The patient has multiple abrasions including the right knee and right elbow. No rashes. Psych: Mood is okay. Affect is full. Insight and judgment are fair. Laboratory Data: Sodium 130, potassium 3.3, chloride is 87, CO2 35, BUN 10, glucose 178, magnesium 1.5. WBC 8.3, H and H 15.7 and 45.8, platelets 240. UA is pending. Influenza screen is negative. Chest x-ray shows focal infiltrate or mass-like density, medial right lung base, can be further evaluated with 2- view chest imaging or CT chest. Baseline examination with diffusely prominent interstitial markings, could be chronic fibrotic change, interstitial edema, interstitial infiltrate or a combination. EKG shows sinus rhythm at 98 beats per minute with marked sinus arrhythmia, left axis deviation. Assessment And Plan: An 83-year-old female with: 1. Right basilar pneumonia. We will start on IV antibiotics and obtain blood cultures and sputum cultures. The patient is currently on supplemental oxygen. 2. Hyponatremia. We will check serum osmolality. We will start on IV fluids with slow correction. 3. Hypomagnesemia. We will replace and monitor. 4. Hypokalemia. We will replace and monitor. 5. Diabetes mellitus type 2, non-insulin requiring, with hyperglycemia. We will start on sliding scale insulin and monitor Accu-Cheks. 6. Essential hypertension. We will resume blood pressure medications. 7. History of pulmonary embolism. We will continue Eliquis. 8. History of breast cancer, currently in remission. Chest x-ray shows possible mass on the right base masked by infiltrate. We will obtain a CT of the chest in a.m. 9. Obesity. 10. Secondary polycythemia may be related to dehydration. 11. Status post fall. The patient has abrasions on the elbow and knee. We will obtain x-rays to rule out fracture. 12. Deep vein thrombosis prophylaxis. The patient is already on Eliquis. Plan: Admit the patient to Med-Surg, place as inpatient. Length Of Stay: Greater than 2 midnights. /MODL Voice ID: [id number]
[2018-09-13] MEDS: NA CHLORIDE 0.9% 1,000 ML IV SCH ×2 (05:12→23:23)
[2018-09-13 05:21] LABS: Urine Appearance CLEAR; Urine Bilirubin NEGATIVE (NEG); Urine Blood NEGATIVE (NEG); Urine Color YELLOW; Urine Glucose NEGATIVE (NEG); Urine Protein NEGATIVE (NEG); Urine Urobilinogen 0.2 mg/dL (0.2-1.0); Urine pH 5.5 (5.0-7.0)
[2018-09-13 05:22] LABS: Urine Microscopic Reflex NO UMIC
[2018-09-13 05:45] LABS: Absolute Lymphocytes (CBC) 1.6 K/uL (0.7-4.9); Absolute Monocytes 0.9 K/uL (0.1-1.3); Absolute Neutrophil 4.9 K/uL (1.8-8.0); Basophils % 0.6 % (0-1.3); Eosinophils % 1.5 % (0-4.4); Hematocrit 42.8 % (36.0-45.0); Lymphocytes % 21.1 % (15.3-44.8); MPV 8.1 fL (7.6-11.3); Monocytes % 11.6 % (3.3-12.3); RBC Red Blood Cell Count 4.63 M/uL (3.86-4.86)
[2018-09-13 05:57] LABS: ALT/SGPT 21 U/L (12-78); AST/SGOT 33 U/L (15-37); Alkaline Phosphatase 57 U/L (45-117); BUN Blood Urea Nitrogen 9 mg/dL (7-18); Bicarbonate 36 mmol/L (21-32); Bilirubin Total 0.8 mg/dL (0.2-1.0); Glucose Level 151 mg/dL (74-106); Magnesium 1.6 mg/dL (1.8-2.4); Phosphorus 3.3 mg/dL (2.5-4.9); Potassium 3.4 mmol/L (3.5-5.1); Protein, Total 6.8 g/dL (6.4-8.2); Sodium Level 135 mmol/L (136-145)
[2018-09-13] MEDS ORDERED: MAGNESIUM SULFATE 1 gm IVPB 1 GM/100 ML BAG IV ONE (07:00)
[2018-09-13] MEDS: EZETIMIBE 10 MG TAB PO SCH (08:21)
[2018-09-13] MEDS: PRAMIPEXOLE 0.25 MG TAB PO SCH ×2 (08:23→20:51)
[2018-09-13] MEDS: ASPIRIN 81 MG CHEWABLE TABLET PO SCH (08:24)
[2018-09-13] MEDS: PANTOPRAZOLE 40MG TABLET PO SCH (08:28)
[2018-09-13] MEDS: AZITHROMYCIN IV 500 MG in NA CHLORIDE 0.9% 250 ML IVPB SCH (08:28)
[2018-09-13] MEDS: FLUOXETINE 10 MG CAP PO SCH (08:28)
[2018-09-13] MEDS: APIXABAN 2.5 MG TABLET PO SCH ×2 (08:28→20:52)
[2018-09-13] MEDS: BUSPIRONE HCL 5 MG TABLET PO SCH ×2 (08:28→20:50)
[2018-09-13] MEDS: DOCUSATE CALCIUM 240 MG CAP PO SCH (08:28)
[2018-09-13] MEDS: INSULIN -REGULAR HUMAN 50 UNIT/0.5 ML ML SQ SCH ×4 (08:31→20:50)
[2018-09-13] MEDS: BECLOMETHASONE DIPROPIONATE IH SCH ×2 (08:50→20:52)
[2018-09-13] MEDS ORDERED: POTASSIUM CL SA 10 MEQ TAB PO ONE (09:00)
[2018-09-13] MEDS ORDERED: CHLORTHALIDONE 50 MG PO SCH (09:00)
[2018-09-13] MEDS: CHLORTHALIDONE 25 MG TAB PO SCH (09:00)
[2018-09-13] MEDS ORDERED: HOME MED 1 EA UNK (Omeprazole [Prilosec] 40 MG) PO SCH (09:00)
[2018-09-13] MEDS: SPIRONOLACTONE 100 MG TAB PO SCH (09:00)
[2018-09-13] MEDS: ATENOLOL 50 MG TAB PO SCH (09:00)
--- NOTE | 2018-09-13 13:28 | P.PN ---
Subjective Date of Service: 09/13/18 Chief Complaint: SOB, cough, fever Subjective: Improving, Working w/ PT Patient seen and examined at bedside. No family at bedside. Chart reviewed and case discussed with nursing staff. Patient states that she is feeling much better, woring with PT. Breathing has improved She is currently off of oxygen and satting well on room air. Review of Systems 10-point ROS is otherwise unremarkable Physical Examination - Vital Signs Temperature: 97.0 F Blood Pressure: 116/65 Pulse: 88 Respirations: 20 Pulse Ox (%): 91 - Physical Exam General: Alert, In no apparent distress, Oriented x3, Obese, Other (elderly, ) HEENT: Atraumatic, PERRLA, EOMI Neck: Supple, JVD not distended Respiratory: Diminished (R>L) Cardiovascular: Regular rate/rhythm, Normal S1 S2 Gastrointestinal: Normal bowel sounds, No tenderness Neurological: Normal speech, Normal tone, Normal affect - Studies Laboratory Data (last 24 hrs) 09/13/18 Sodium 135 L, Potassium 3.4 L, BUN 9, Creatinine 0.62, Glucose 151 09/13/18 WBC 7.5, Hgb 14 H, Hct 42.8 H, Plt Count 202 Microbiology Data (last 24 hrs): 09/12/18 13:10 Blood - Blood Anaerobic Blood Culture - Final 09/12/18 13:10 Nasopharnyx Influenza Type A Antigen Screen - Final 09/12/18 13:10 Nasopharnyx Influenza Type B Antigen Screen - Final Assessment And Plan - Current Problems (Diagnosis) (1) Pneumonia Current Visit: Yes Status: Acute Qualifiers: Pneumonia type: due to unspecified organism Laterality: right Lung location: unspecified part of lung Qualified Code(s): J18.9 - Pneumonia, unspecified organism (2) Fall Current Visit: Yes Status: Acute Qualifiers: Encounter type: initial encounter Qualified Code(s): W19.XXXA - Unspecified fall, initial encounter (3) HTN (hypertension) Current Visit: No Status: Chronic Qualifiers: Hypertension type: essential hypertension Qualified Code(s): I10 - Essential (primary) hypertension (4) Diabetes mellitus Current Visit: Yes Status: Chronic Qualifiers: Diabetes mellitus type: type 2 Diabetes mellitus termite control service representative insulin use: without penitentiary use Diabetes mellitus complication status: with hyperglycemia Qualified Code(s): E11.65 - Type 2 diabetes mellitus with hyperglycemia (5) Osteochondroma Current Visit: Yes Status: Suspected (6) Hyponatremia Current Visit: Yes Status: Acute (7) Polycythemia Current Visit: Yes Status: Acute (8) History of pulmonary embolism Current Visit: No Status: Chronic (9) History of breast cancer Current Visit: Yes Status: Chronic (10) Mass of lung Current Visit: Yes Status: Suspected (11) Hypomagnesemia Current Visit: Yes Status: Acute (12) Hypokalemia Current Visit: Yes Status: Acute - Plan An 83-year-old female with: Right basilar pneumonia. Continue IV antibiotics We will follow up on blood cultures and sputum cultures, still pending. The patient is currently on supplemental oxygen. Continue to wean as tolerated. Hyponatremia. Improving appropriately, continue IV fluids with slow correction. Hypomagnesemia. Replaced, will continue to monitor. Hypokalemia. Replaced, continue to monitor. Diabetes mellitus type 2, non-insulin requiring, with hyperglycemia. Continue sliding scale insulin and monitor Accu-Cheks. Essential hypertension. Low BP this am, we will hold home BP medications at this time and then restart as tolerated. History of pulmonary embolism. We will continue Eliquis. History of breast cancer, currently in remission. Chest x-ray shows possible mass on the right base masked by infiltrate. CT of the chest ordered, pending Obesity. Secondary polycythemia Improving, may be related to dehydration. Status post fall. Incidental finding of calcified area under femur, pelvis xray. The patient has abrasions on the elbow and knee. Knee and elbow x-rays negative for acute fractures Pelvis x-ray: No acute fracture noted. But noted to have calcified oblong area, suspicious for possible osteochondroma. She will need outpatient follow up for that. Deep vein thrombosis prophylaxis. The patient is already on Eliquis. Disposition: Pending symptomatic improvement, weaning off oxygen. Monitor electrolytes. Possible discharge home in the next 24-48 hours pending imaging and clinical improvement.
--- NOTE | 2018-09-13 16:08 | RAD REPORT ---
EXAM DESCRIPTION: CT - Chest Abdomen Pelvis W Cont - 09/13/2018 3:10 pm CLINICAL HISTORY: Abnormal chest film, breast cancer history COMPARISON: Chest film September 12 TECHNIQUE: Following dynamic enhancement using 100 milliliters nonionic IV contrast, axial imaging o f the chest, abdomen and pelvis was performed. Biphasic technique was utilized through the abdomen. Oral contrast was administered. All CT scans are performed using dose optimization technique as appropriate and may include automated exposure control or mA/KV adjustment according to patient size. FINDINGS: Minimal pneumonia changes are present in the posterior aspect mid right lower lobe. This i s seen as interstitial and patchy alveolar opacification. No large mass or consolidation. Mild bronch ial wall thickening changes are present in the central right lung field. There is minimal infiltrate and atelectasis change in the central aspect right middle lobe. No left lung field mass or infiltrate . There is minimal scarring or atelectasis in the medial left base. Masslike density on the chest film corresponds to a large right pulmonary artery. No malignant chest findings are seen. No pleural effusion, pleural thickening or pneumothorax. No significant aortic or pulmonary arterial tree finding. Mediastinal and hilar regions show no mass or abnormal lymphadenopat hy. No chest wall mass or axillary lymphadenopathy. Postsurgical changes are present at the right axi lla and right breast. Liver size is normal. No focal liver lesions are identified. Spleen and pancreas show no suspicious f indings. Gallbladder size is normal. Gallstones are present. No biliary tree dilatation. Symmetric re nal function is seen with no mass or hydronephrosis. No adrenal abnormalities. No dilated bowel loops or focal bowel wall thickening. Moderate stool volume present in the colon. Mo derate sigmoid diverticulosis present without diverticulitis. No acute GI process seen. Urinary bladd er shows no suspicious findings. Uterus is absent. Ovaries are absent or atrophic. No adnexal mass. Prominent disc and bony degenerative changes are present. Posttraumatic dense calcifications are pres ent in the musculature anterior the left hip joint. This is not of acute clinical significance. Promi nent disc and bony degenerative changes are present in the mid and lower lumbar spine. No pathologic bone process identified. No significant vascular findings. IVC filter in place. IMPRESSION: No suspicious mass or lymphadenopathy in chest. The mass lesion on the recent chest film represents enlarged right pulmonary artery. Minimal pneumonia or infiltrate changes in the posterior aspect mid right lung field. No liver lesion, lymphadenopathy or other acute or worrisome CT abdomen or pelvis finding. Incidental note of cholelithiasis. Prominent bony degenerative changes are present.
[2018-09-13] MEDS: ALBUTEROL 2.5 MG/3 ML NEB SOL NEB PRN (17:25)
[2018-09-13] MEDS: ATORVASTATIN 10 MG TAB PO SCH (20:51)
[2018-09-13] MEDS: SPIRONOLACTONE 25 MG TABLET PO SCH (20:51)
[2018-09-13] MEDS: MELATONIN 5 MG TABLET PO PRN (23:22)
[2018-09-14] MEDS: ACETAMINOPHEN 500 MG TAB PO PRN (04:51)
[2018-09-14 05:38] LABS: BUN Blood Urea Nitrogen 10 mg/dL (7-18); Bicarbonate 37 mmol/L (21-32); Glucose Level 147 mg/dL (74-106); Magnesium 1.7 mg/dL (1.8-2.4); Potassium 3.5 mmol/L (3.5-5.1); Sodium Level 138 mmol/L (136-145)
[2018-09-14] MEDS: INSULIN -REGULAR HUMAN 50 UNIT/0.5 ML ML SQ SCH (07:30)
[2018-09-14] MEDS ORDERED: POTASSIUM CL SA 10 MEQ TAB PO ONE ×2 (07:37→09:00)
[2018-09-14] MEDS: BECLOMETHASONE DIPROPIONATE IH SCH (09:00)
[2018-09-14] MEDS ORDERED: MAGNESIUM SULFATE 1 gm IVPB 1 GM/100 ML BAG IV ONE (09:00)
[2018-09-14] MEDS: DOCUSATE CALCIUM 240 MG CAP PO SCH (09:00)
[2018-09-14] MEDS: AZITHROMYCIN IV 500 MG in NA CHLORIDE 0.9% 250 ML IVPB SCH (09:00)
[2018-09-14] MEDS: EZETIMIBE 10 MG TAB PO SCH (09:00)
[2018-09-14] MEDS: FLUOXETINE 10 MG CAP PO SCH (09:20)
[2018-09-14] MEDS: CHLORTHALIDONE 25 MG TAB PO SCH (09:20)
[2018-09-14] MEDS: SPIRONOLACTONE 100 MG TAB PO SCH (09:21)
[2018-09-14] MEDS: PRAMIPEXOLE 0.25 MG TAB PO SCH (09:21)
[2018-09-14] MEDS: BUSPIRONE HCL 5 MG TABLET PO SCH (09:21)
[2018-09-14] MEDS: APIXABAN 2.5 MG TABLET PO SCH (09:22)
[2018-09-14] MEDS: PANTOPRAZOLE 40MG TABLET PO SCH (09:22)
[2018-09-14] MEDS: ATENOLOL 50 MG TAB PO SCH (09:22)
[2018-09-14] MEDS: ASPIRIN 81 MG CHEWABLE TABLET PO SCH (09:23)
[2018-09-14] MEDS: ALBUTEROL 2.5 MG/3 ML NEB SOL NEB PRN (09:28)
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
== END 2018-09-14 13:34 | disposition home or self-care (01) ==
LOC: ER 12:14 → INTOOBSV 14:59 → ERHOLD 14:59 → 4TH 16:01
PROVIDERS: ADMIT Family Medicine; ATTEND Family Medicine
DX: J18.9 Pneumonia, unspecified organism (principal); E11.9 Type 2 diabetes mellitus without complications; I10 Essential (primary) hypertension; Z86.711 Personal history of pulmonary embolism; Z96.653 Presence of artificial knee joint, bilateral; E87.1 Hypo-osmolality and hyponatremia; D75.1 Secondary polycythemia; Z85.3 Personal history of malignant neoplasm of breast; E83.42 Hypomagnesemia; E87.6 Hypokalemia; S50.311A Abrasion of right elbow, initial encounter; S80.211A Abrasion, right knee, initial encounter; W19.XXXA Unspecified fall, initial encounter; Y93.9 Activity, unspecified; Y92.9 Unspecified place or not applicable
CPT/HCPCS: 96365; 96368; 93005; 87040; 87070; 85025 ×2; 80048 ×2; 36415 ×2; 83735 ×3; 87205; 84100; 85610; 82962 ×8; 80076; 81003; 84484; 80053; 83880; 83930; 87804 ×2; 71260; 74177; 71045; 72170; 73070; 73560; 92610; 97116 ×3; 97163; 97166; 97530; 94640; 94760 ×4; 96375; 99285; 96366; Q9967; J0456 ×3; J3475 ×3; J2543; J7030 ×3; J2405; G0378 ×2